=== PATIENT | female | born 1950 | race Caucasian/White ===

== ENCOUNTER 2016-11-19 14:35 | Emergency (ER) | payer BC ==
[2016-11-19] MEDS ORDERED: IPRATROPIUM/ALBUTEROL (0.5MG/3MG) NEB INH ONE (15:21)
--- NOTE | 2016-11-19 15:25 | Emergency Department Record ---
History of Present Illness - General Chief Complaint: Difficulty Breathing Stated Complaint: TOMER- PT HAS COPD Time Seen by Provider: 11/19/16 15:21 Source: Patient Mode of Arrival: Ambulatory Limitations: No limitations - History of Present Illness Initial Comments: 66 yo female presents with cough and wheezing since her vacuumed the house. She has a history of COPD. She is wheezy and short of breath with a persistent cough. The cough is non productive. No fevers. No hemoptysis. PCP is Ludwin Wilburn MD Complaint: Cough, Shortness of breath Onset/Timin -: Hour(s) Severity: Moderate Quality: Other Consistency: Other Improves With: Bronchodilators Worsens With: Exertion Known History Of: COPD Context: Allergen exposure Associated Symptoms: Denies other symptoms Treatments Prior to Arrival: Bronchodilator - Related Data Home Medications Medication Instructions Recorded Confirmed Last Taken Albuterol Sulfate [Ventolin Hfa] 1 puff INH QID 07/25/15 11/19/16 11/19/16 Lisinopril/Hydrochlorothiazide 20 mg PO DAILY 07/25/15 11/19/16 11/19/16 [Lisinopril-Hctz 20-12.5 mg Tab] Loratadine [Claritin] 10 mg PO DAILY 07/25/15 11/19/16 11/18/16 Omeprazole [Prilosec] 20 mg PO BID 07/25/15 11/19/16 11/19/16 Tiotropium Br/Olodaterol HCl 2 puff IH DAILY 09/22/15 11/19/16 11/19/16 [Stiolto Respimat Inhal [place]] Cyclobenzaprine HCl 10 mg PO ASDIR tab 10/30/16 11/19/16 11/19/16 Pravastatin Sodium 20 mg PO DAILY #90 10/30/16 11/19/16 11/19/16 Previous Rx's Medication Instructions Recorded Prednisone [Prednisone 20Mg] 20 mg PO BID #10 tab 11/19/16 Allergies Allergy/AdvReac Type Severity Reaction Status Date / Time No Known Drug Allergies Allergy Verified 11/19/16 15:08 Travel Screening - Travel/Exposure Within Last 30 Days Have you traveled within the last 30 days?: No - Travel/Exposure Within Last Year Have you traveled outside the [place] in the last year?: No - Additonal Travel Details Have you been exposed to anyone with a communicable illness?: No - Travel Symptoms Symptom Screening: None Review of Systems Constitutional: Denies: Chills, Fever, Malaise, Weakness Eyes: Denies: Eye discharge ENT: Reports: Congestion. Denies: Ear pain, Epistaxis, Throat pain Respiratory: Reports: Cough, Dyspnea, Wheezes Cardiovascular: Denies: Chest pain, Palpitations, Syncope Endocrine: Denies: Fatigue Gastrointestinal: Denies: Abdominal pain, Diarrhea, Nausea, Vomiting Genitourinary: Denies: Dysuria Musculoskeletal: Denies: Arthralgia, Back pain, Joint swelling, Myalgia Skin: Denies: Bruising, Change in color Neurological: Denies: Headache Psychiatric: Denies: Anxiety Hematological/Lymphatic: Denies: Blood Clots, Easy bleeding, Easy bruising, Swollen glands Past Medical History - SOCIAL HISTORY Smoking Status: Former smoker Alcohol Use: None Drug Use: None - RESPIRATORY Hx Respiratory Disorders: Yes Hx Asthma: Yes Hx COPD: Yes Hx Pneumonia: Yes - CARDIOVASCULAR Hx Cardio Disorders: Yes Hx Cardiac Cath: Yes (15 yrs) Hx Hypertension: Yes - NEURO Hx Neuro Disorders: Yes Hx CVA: Yes (unsure) - GI Hx GI Disorders: Yes Hx Reflux: Yes Comment:: ischemic colitis - Hx Genitourinary Disorders: No - ENDOCRINE Hx Endocrine Disorders: Yes Hx Thyroid Disease: Yes - MUSCULOSKELETAL Hx Musculoskeletal Disorders: Yes Hx Arthritis: Yes - PSYCH Hx Psych Problems: No - HEMATOLOGY/ONCOLOGY Hx Hematology/Oncology Disorders: No Family Medical History Any Significant Family History?: Yes Hx Alcohol Use: Father Hx Anxiety: Mother, Brother/Sister Hx Cancer: Father, Grandparents Hx Depression: Brother/Sister Hx Diabetes: Mother, Grandparents Hx Heart Disease: Mother Hx HTN: Father Hx Resp Disorders: Mother Physical Exam - General General Appearance: Alert, Oriented x3, Cooperative, No acute distress Limitations: No limitations - Head Head exam: Normal inspection - Eye Eye exam: Normal appearance, PERRL. negative: Conjunctival injection, Periorbital swelling - ENT ENT exam: Normal exam Ear exam: Normal external inspection Nasal Exam: Normal inspection Mouth exam: Normal external inspection Teeth exam: Normal inspection Throat exam: Normal inspection - Neck Neck exam: Normal inspection, Full ROM. negative: Tenderness - Respiratory Respiratory exam: Decreased breath sounds, Prolonged expiratory, Wheezes. negative: Accessory muscle use, Respiratory distress - Cardiovascular Cardiovascular Exam: Regular rate, Normal rhythm, Normal heart sounds - GI/Abdominal GI/Abdominal exam: Soft - Rectal Rectal exam: Deferred - exam: Deferred - Extremities Extremities exam: Normal inspection, Full ROM, Normal capillary refill. negative: Pedal edema, Tenderness - Back Back exam: Reports: Normal inspection, Full ROM. Denies: Muscle spasm, Rash noted, Tenderness - Neurological Neurological exam: Alert, Normal gait, Oriented X3 - Psychiatric Psychiatric exam: Normal affect, Normal mood - Skin Skin exam: Dry, Intact, Normal color, Warm Course Vital Signs 11/19/16 15:13 Temperature 97.5 F L Pulse Rate 103 H Respiratory 20 Rate Blood Pressure 183/89 Pulse Ox 99 - Reevaluation(s) Reevaluation #1: RT in room for a nebulized treatment. 11/19/16 15:24 Reevaluation #2: The patient is feeling much better at this time. On recheck she is moving air very well with good air exchange. She is comfortable with plan for DC home on Prednisone No signs of current infectious cause. 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
[2016-11-19] MEDS ORDERED: METHYLPREDNISOLONE PF 125MG/VIAL IVP SCH (15:30)
== END 2016-11-19 17:19 | disposition home or self-care (01) ==
LOC: ER 14:35
DX: J44.9 Chronic obstructive pulmonary disease, unspecified (principal); I10 Essential (primary) hypertension; Z87.891 Personal history of nicotine dependence
CPT/HCPCS: 94640; 96374; 99284; J2930

== ENCOUNTER 2017-07-01 21:14 | Observation (INO) | payer BC ==
[2017-07-01] MEDS ORDERED: METHYLPREDNISOLONE PF 125MG/VIAL IVP ONE (21:29)
[2017-07-01] MEDS ORDERED: ALBUTEROL SULFATE (0.083%) 2.5 MG/3 ML NEB INH ONE ×2 (21:29→22:40)
[2017-07-01] MEDS ORDERED: IPRATROPIUM/ALBUTEROL (0.5MG/3MG) NEB INH ONE (21:29)
[2017-07-01] MEDS ORDERED: MAGNESIUM SULFATE 16 MEQ in 0.9 % SODIUM CHLORIDE 100ML 100 ML IV ONE (21:31)
--- NOTE | 2017-07-01 21:36 | Emergency Department Record ---
History of Present Illness - General Chief Complaint: Shortness of breath Stated Complaint: TOMER Time Seen by Provider: 07/01/17 21:26 Source: Patient Mode of Arrival: Ambulatory Limitations: No limitations - History of Present Illness Initial Comments: The patient is here due to SOB and a cough which has gotten progressively worse over the last 2 days. She denies any sputum production or chest pain but states she has felt warm. She has a long hx of COPD but has not been admitted to the hospital in 2 years. The patient denies any recent illnesses or injuries. MD Complaint: Cough, Shortness of breath Onset/Timin -: Days(s) Consistency: Constant, Intermittent Improves With: Bronchodilators, Medication Worsens With: Nothing Known History Of: COPD Associated Symptoms: Denies other symptoms Treatments Prior to Arrival: Bronchodilator Treatment Prior to Arrival Comment:: nebulizer - Related Data Home Oxygen Therapy: Yes (at night) Home Oxygen Amount: 2 Liters Home Medications Medication Instructions Recorded Confirmed Last Taken Ipratropium/Albuterol [Duoneb] 1 neb INH ASDIR 07/01/17 07/01/17 07/01/17 Allergies Allergy/AdvReac Type Severity Reaction Status Date / Time No Known Drug Allergies Allergy Verified 07/01/17 21:17 Travel Screening - Travel/Exposure Within Last 30 Days Have you traveled within the last 30 days?: No - Travel/Exposure Within Last Year Have you traveled outside the [place] in the last year?: No - Additonal Travel Details Have you been exposed to anyone with a communicable illness?: No - Travel Symptoms Symptom Screening: None Review of Systems Constitutional: Denies: Chills, Fever Eyes: Denies: Eye discharge ENT: Reports: Congestion. Denies: Dental pain Respiratory: Reports: Cough, Dyspnea, Wheezes. Denies: Hemoptysis Cardiovascular: Denies: Arrhythmia, Chest pain Endocrine: Reports: Fatigue Gastrointestinal: Denies: Abdominal pain Genitourinary: Denies: Other Musculoskeletal: Denies: Back pain Past Medical History - SOCIAL HISTORY Smoking Status: Former smoker Alcohol Use: Rare Drug Use: None - RESPIRATORY Hx Respiratory Disorders: Yes Hx Asthma: Yes Hx COPD: Yes Hx Pneumonia: Yes - CARDIOVASCULAR Hx Cardio Disorders: Yes Hx Cardiac Cath: Yes (15 yrs) Hx Hypertension: Yes - NEURO Hx Neuro Disorders: Yes Hx CVA: Yes (unsure) - GI Hx GI Disorders: Yes Hx Reflux: Yes Comment:: ischemic colitis - Hx Genitourinary Disorders: No - ENDOCRINE Hx Endocrine Disorders: Yes Hx Thyroid Disease: Yes - MUSCULOSKELETAL Hx Musculoskeletal Disorders: Yes Hx Arthritis: Yes - PSYCH Hx Psych Problems: No - HEMATOLOGY/ONCOLOGY Hx Hematology/Oncology Disorders: No Family Medical History Any Significant Family History?: No Hx Alcohol Use: Father Hx Anxiety: Mother, Brother/Sister Hx Cancer: Father, Grandparents Hx Depression: Brother/Sister Hx Diabetes: Mother, Grandparents Hx Heart Disease: Mother Hx HTN: Father Hx Resp Disorders: Mother Physical Exam - General General Appearance: Alert, Oriented x3, Cooperative, Mild distress (due to dyspnea and coughing.) - Head Head exam: Atraumatic, Normocephalic - Eye Eye exam: Normal appearance, PERRL - ENT Throat exam: Normal inspection. negative: Tonsillar erythema, Tonsillar exudate - Neck Neck exam: Normal inspection, Full ROM. negative: Tenderness - Respiratory Respiratory exam: Decreased breath sounds, Respiratory distress (very mild.), Wheezes. negative: Normal lung sounds bilaterally, Accessory muscle use - Cardiovascular Cardiovascular Exam: Regular rate, Normal rhythm, Normal heart sounds, Tachycardia - GI/Abdominal GI/Abdominal exam: Soft, Normal bowel sounds. negative: Tenderness - Extremities Extremities exam: Normal inspection, Full ROM, Normal capillary refill. negative: Pedal edema, Tenderness - Neurological Neurological exam: Alert. negative: Motor sensory deficit Course Vital Signs 07/01/17 21:18 Temperature 98.4 F Pulse Rate 120 H Respiratory 32 H Rate Blood Pressure 194/116 Pulse Ox 91 L - Reevaluation(s) Reevaluation #1: The patient is doing a lot better at this time. She is able to speak in full sentences with only minor TOMER. On exam there are still wheezes in the lower lobes but much better aeration. We will treat the patient with a 3rd albuterol tx and recheck. 07/01/17 22:41 Reevaluation #2: The patient is again doing better. Her TOMER is much improved but she is still wheezing in the lower lobes. I did recommend hospital admission and the patient agrees to the plan. We will admit her to Dr. Childers overnight and she will be re- evaluated in the morning. 07/01/17 22:59 Medical Decision Making - Data Complexity MDM Data: Labs Ordered and/or Reviewed, X-Ray Ordered and/or Reviewed, EKG Ordered and/or Reviewed - Lab Data Result diagrams: 07/01/17 21:21 07/01/17 21:21 - EKG Data -: EKG Interpreted by Me EKG: No Acute Changes, Normal EKG (Except for Sinus Tach.) - Radiology Data Radiology results: Report reviewed (CXR: COPD, O/W neg.) Disposition Disposition: Admit Clinical Impression: COPD (chronic obstructive pulmonary disease) with acute bronchitis Disposition: Still a Patient at [facility] Decision to Admit: Admit from ER Decision to Admit Date: 07/01/17 Decision to Admit Time: 23:01 Accepting Physician: Liseth Time Discussed w/Accepting Physician: 23:01 Condition: (2) Stable Time of Disposition: 23:01 Quality - Quality Measures Quality Measures: N/A - Blood Pressure Screening View Details: Yes Does Patient Have Any of the Following: Active Dx of HTN Blood Pressure Classification: Hypertensive Reading Systolic Measurement: 154 Diastolic Measurement: 74 Screening for High Blood Pressure: Patient Exclusion, Hx of HTN [[id number]]
[2017-07-01 21:39] LABS: BASO % 0.5 % (0-6); EOS % 6.7 % (0-6); HEMATOCRIT 39.4 % (35.0-47.0); HEMOGLOBIN 13.4 gm/dl (11.6-16.0); LYMPH % 24.2 % (16-45); MEAN CELL VOLUME 89.1 fl (81-97); MEAN CORPUSCULAR HEMOGLOBIN 30.3 pg (27-33); MEAN PLATELET VOLUME 9.9 fl (7.4-10.4); MONO % 9.6 % (0-9); PLATELET COUNT 345 K/uL (130-400); RED BLOOD COUNT 4.42 M/uL (3.80-5.40); RED CELL DISTRIBUTION WIDTH 13.5 % (11.5-14.5); WHITE BLOOD COUNT W/O DIFF 11.8 K/uL (4.2-12.2)
[2017-07-01 21:56] LABS: BLOOD UREA NITROGEN 14 mg/dL (8-23); CREATININE 1.3 mg/dL (0.5-0.9); EST GLOMERULAR FILTRATION RATE 43 mL/min; GLUCOSE,RANDOM 114 mg/dL (74-109)
[2017-07-01 22:08] LABS: NTpro B-NATRIURETIC PEPTIDE 26.85 pg/mL (<125)
[2017-07-01 22:09] LABS: TROPONIN I < 0.30 ng/mL (0.00-0.300)
[2017-07-01] MEDS ORDERED: LEVOFLOXACIN 500 MG TABLET PO ONE (22:40)
[2017-07-01] MEDS ORDERED: 0.9 % SODIUM CHLORIDE 1,000 ML BAG IV ONE (23:07)
[2017-07-01] MEDS ORDERED: ALBUTEROL SULFATE (0.083%) 2.5 MG/3 ML NEB INH PRN (23:25)
[2017-07-01] MEDS ORDERED: 0.9 % SODIUM CHLORIDE 1000ML 1,000 ML IV PRN (23:25)
[2017-07-01] MEDS ORDERED: ACETAMINOPHEN 500 MG TABLET PO PRN (23:25)
[2017-07-02] MEDS: IPRATROPIUM/ALBUTEROL (0.5MG/3MG) NEB INH SCH ×3 (02:22→11:35)
[2017-07-02] MEDS ORDERED: LEVOFLOXACIN 500 MG TABLET PO SCH (06:00)
[2017-07-02 06:46] LABS: BASO % 0.1 % (0-6); EOS % 0.2 % (0-6); HEMATOCRIT 39.8 % (35.0-47.0); HEMOGLOBIN 13.3 gm/dl (11.6-16.0); LYMPH % 9.2 % (16-45); MEAN CELL VOLUME 90.5 fl (81-97); MEAN CORPUSCULAR HEMOGLOBIN 30.2 pg (27-33); MEAN CORPUSCULAR HGB CONC 33.4 g/dl (32-36); MONO % 0.8 % (0-9); PLATELET COUNT 322 K/uL (130-400); RED CELL DISTRIBUTION WIDTH 13.3 % (11.5-14.5); WHITE BLOOD COUNT W/O DIFF 10.4 K/uL (4.2-12.2)
[2017-07-02 06:58] LABS: ALB/GLOB RATIO 1.7 (1.1-1.8); ALBUMIN 4.5 g/dL (4.0-5.0); ALKALINE PHOSPHATASE 64 U/L (35-104); ALT/SGPT 26 U/L (<33); AST/SGOT 20 U/L (10.0-35.0); BLOOD UREA NITROGEN 12 mg/dL (8-23); CREATININE 0.9 mg/dL (0.5-0.9); EST GLOMERULAR FILTRATION RATE > 60 mL/min; GLUCOSE,RANDOM 196 mg/dL (74-109); TOTAL PROTEIN 7.2 g/dL (6.6-8.7)
[2017-07-02] MEDS ORDERED: PANTOPRAZOLE SODIUM 40 MG TABLET PO SCH (07:00)
--- NOTE | 2017-07-02 07:48 | RADIOLOGY REPORT ---
EXAM: CHEST, TWO VIEWS HISTORY: DIFFICULTY IN BREATHING. TECHNIQUE: PA and lateral views of the chest were obtained. Comparison: Two view chest 10/30/16. FINDINGS: The heart size is normal. The lungs again appear somewhat hyperinflated suggesting underlying COPD. No acute infiltrate is identified. No pleural effusion or pneumothorax evident. Some hypertrophic spurring in the spine again evident. IMPRESSION: 1. HYPERINFLATION SUGGESTING COPD. NO ACUTE INFILTRATE EVIDENT. 2. HYPERTROPHIC SPURRING IN THE SPINE. JOB NUMBER: [id number] [facility]
--- NOTE | 2017-07-02 08:51 | Discharge Note ---
VTE H&P Assessment - Risk for VTE Risk for VTE: Yes Risk Level: Very Low Risk Assessment Date: 07/02/17 Risk Assessment Time: 08:49 VTE Orders Placed or Will Be Placed: No VTE Reason for No Prophylaxis: Not Indicated (going home) Discharge Medications - Discharge Medications Prescriptions: Levofloxacin [Levaquin] 500 mg PO DAILY #7 tablet Prednisone [Prednisone 10Mg] 10 mg PO ASDIR #30 tab Home Medications: Ambulatory Orders Albuterol Sulfate [Ventolin Hfa] 1 puff INH QID 07/25/15 [Last Taken 07/01/17] Lisinopril/Hydrochlorothiazide [Lisinopril-Hctz 20-12.5 mg Tab] 40 mg PO DAILY 07/25/15 [Last Taken 07/01/17] Loratadine [Claritin] 10 mg PO DAILY 07/25/15 [Last Taken 07/01/17] Omeprazole [Prilosec] 20 mg PO BID 07/25/15 [Last Taken 07/01/17] Cyclobenzaprine HCl 10 mg PO ASDIR tab 10/30/16 [Last Taken 11/19/16] Pravastatin Sodium 20 mg PO DAILY #90 10/30/16 [Last Taken 07/01/17] Ipratropium/Albuterol [Duoneb] 1 neb INH ASDIR 07/01/17 [Last Taken 07/01/17] Levofloxacin [Levaquin] 500 mg PO DAILY #7 tablet 07/02/17 [Last Taken Unknown] Prednisone [Prednisone 10Mg] 10 mg PO ASDIR #30 tab 07/02/17 [Last Taken Unknown ] Discharge Note - Date Date of Discharge Note: 07/02/17 Disposition: Home, Self-Care Condition: (2) Stable Instructions: Dyspnea (ED) Additional Instructions: follow up with family Dr. Lea as scheduled Jul 10 and sooner if worse Forms: Patient Portal Access Activity at Discharge: As Per Physical Therapy
[2017-07-02] MEDS ORDERED: HYDROCHLOROTHIAZIDE 12.5 MG CAPSULE PO SCH ×2 (10:00)
[2017-07-02] MEDS ORDERED: LISINOPRIL 20 MG TABLET PO SCH ×2 (10:00)
[2017-07-02] MEDS ORDERED: Non-Formulary MISC (Omeprazole [Prilosec] 20 MG) PO SCH (10:00)
[2017-07-02] MEDS ORDERED: PRAVASTATIN SODIUM 20 MG PO SCH (10:00)
[2017-07-02] MEDS ORDERED: LORATADINE 10 MG TABLET PO SCH (10:00)
[2017-07-02] MEDS ORDERED: METHYLPREDNISOLONE PF 125MG/VIAL IVP SCH (10:00)
[2017-07-02] MEDS ORDERED: SIMVASTATIN 10MG TABLET PO SCH (22:00)
--- NOTE | 2017-07-03 07:30 | History and Physical Report ---
This is an observation patient. DATE OF ADMISSION: 07/01/2017 CHIEF COMPLAINT: Dyspnea and coughing. HISTORY OF PRESENT ILLNESS: This 67-year-old female presented to the emergency department with difficulty breathing, wheezing, shortness of breath, and cough. Evaluated in the emergency department by Dr. Irene. The patient had the cough for 2 days, progressively getting worse. Denies sputum production. Long history of COPD and uses home oxygen mostly at night for sleeping. She also gets samples from her doctor's office of [facility] and she rotates between 250/50 and 500/50. Currently she believes she is on 250/50. She is admitted to the hospital with a diagnosis of COPD, bronchitis. Started on Levaquin. PAST MEDICAL HISTORY: COPD and using home oxygen, GERD, hypertension, heart catheterization 15 years ago negative, TIA, ischemic colitis, hypothyroidism, arthritis. PAST SURGICAL HISTORY: Right ovarian cyst removed in 1974. MEDICATIONS: 1. DuoNeb q.i.d. 2. Pravastatin 20 mg at h.s. 3. Omeprazole 20 mg b.i.d. 4. Claritin 10 mg daily. 5. Lisinopril/hydrochlorothiazide 20/12.5 once a day. 6. Flexeril 10 mg p.r.n. 7. Ventolin 1 puff q.4 h. p.r.n. ALLERGIES: No known drug allergies. FAMILY HISTORY: Father had alcohol use. Mother had anxiety. Brother and sister had anxiety. Father and grandparents with cancer, depression, 4 brothers and sisters. Mother had diabetes. Grandparents have diabetes. Heart disease in the mother. Hypertension in the father. Respiratory problems in the mother. SOCIAL HISTORY: She is a former smoker, stopped in 2014. Started smoking in 1967, a pack a day. Occasional alcohol use. No drug use. REVIEW OF SYSTEMS: HEENT: See Chief Complaint. There is some congestion and a cough and wheezing. Cardiovascular: No chest pain, palpitations, or arrhythmia. Respiratory: She is short of breath and wheezing when she came into the emergency department. Much improved since she got Solu-Medrol. Started on an antibiotic of Levaquin and fluids. Gastrointestinal: No nausea, vomiting, diarrhea, black stools, or bloody stools. Genitourinary: No dysuria, hematuria, frequency, or burning on urination. Musculoskeletal: Arthritis in her joints. Neurological: No CVA, paralysis, or paresthesias. Endocrine: No diabetes or thyroid disease. Gynecological History: No abnormal lumps in her breasts or abnormal vaginal bleeding. Integument: No rash, ulcers, change in moles, or yellow skin. PHYSICAL EXAMINATION: VITALS: Height 5 feet 7 inches, weight 186 pounds. Temperature 97.6, pulse 102, blood pressure 153/81, respiratory rate 18, pulse ox 97% on 2L O2. HEENT: Pupils are equal, round, and reactive to light and accommodation. Extraocular muscles are intact. Throat is clear. Nose is clear. Tympanic membranes are laurent. NECK: Supple. No jugular venous distention. No hepatojugular reflux. No carotid bruits. Thyroid is smooth. CARDIOVASCULAR: Regular rate and rhythm without murmurs, clicks, rubs, or gallops. RESPIRATORY: Clear to auscultation and percussion. She was wheezing last night. ABDOMEN: Soft, nontender. No hepatosplenomegaly, no masses, no tenderness. Bowel sounds are active. No bruits. EXTREMITIES: No pitting edema. No cyanosis, no clubbing. Full range of motion. Peripheral pulses are good. BREASTS: Exam deferred. GYNECOLOGICAL: Exam deferred. RECTAL: Exam deferred. NEUROLOGIC: Cranial nerves II-XII intact. No gross defects. Sensation normal, strength normal. Deep tendon reflexes equal bilaterally with Babinski negative. MENTAL STATUS: Alert and oriented x3. IMPRESSION: 1. Acute bronchitis. 2. Acute exacerbation of COPD. 3. GERD. PLAN: IV fluids. She got a dose of Levaquin and Solu-Medrol. At this point, we will discharge the patient to home. She is feeling much better. CC: Dr. Marcial MORRIS
--- NOTE | 2017-07-04 15:26 | Discharge Summary ---
DATE OF ADMISSION: 07/01/2017 DATE OF DISCHARGE: 07/02/2017 DISCHARGE DIAGNOSES: 1. Acute bronchitis. 2. COPD. 3. GERD. 4. Hypercholesterolemia. 5. Hypertension. ATTENDING PHYSICIAN: Azar Childers DO REASON FOR HOSPITALIZATION: Wheezing and cough for 2 days. This 67-year-old female developed a cough with congestion and short of breath over the last 2 days, came in to the ER, evaluated by Dr. Irene, and admitted to the hospital for IV Levaquin, IV Solu-Medrol, and breathing treatments. SIGNIFICANT FINDINGS FROM EXAMINATION: Chest x-ray was hyperinflation suggesting COPD. No acute infiltrate evident. EKG showing sinus tachycardia. No ST/T wave changes. LABORATORY: The WBC on discharge was 10,400. Hemoglobin 13.3. Segs were 88. Lymphs were 9. Potassium was 4.7. BUN was 12. Creatinine was 0.9. Glucose was 114 when she came in to the hospital. It went up because of the IV Solu-Medrol. It was 196 when she was discharged. THERAPY PROVIDED: IV Solu-Medrol. DuoNeb treatments. IV fluids. IV Levaquin. CONDITION ON DISCHARGE: Much improved. DISCHARGE INSTRUCTIONS: Levaquin 500 mg daily x 7. Prednisone started at 40 mg, taper to nothing in 3-day increments, 4 pills a day for 3 days, then 3 pills a day for 3 days, then 2 pills a day for 3 days, then 1 pill a day for 3 days with 10 mg pills. Follow up with Dr. Tish Wilburn in 7-10 days. Troponin I was negative. Brain natriuretic peptide was negative. CC: Tish Wilburn DO [id number]
== END 2017-07-02 11:40 | disposition home or self-care (01) ==
LOC: ER 21:14 → MEDSURG 23:18
PROVIDERS: ADMIT Emergency Medicine; ATTEND Emergency Medicine
DX: J44.0 Chronic obstructive pulmonary disease with (acute) lower respiratory infection (principal); J20.9 Acute bronchitis, unspecified; J44.1 Chronic obstructive pulmonary disease with (acute) exacerbation; K21.9 Gastro-esophageal reflux disease without esophagitis; E78.00 Pure hypercholesterolemia, unspecified; I10 Essential (primary) hypertension; Z86.73 Personal history of transient ischemic attack (TIA), and cerebral infarction without residual deficits; K55.9 Vascular disorder of intestine, unspecified
CPT/HCPCS: 99285 ×2; 96374; 85025; 84484; 80048; 80053; 85027; 83880; 71020; 94640 ×3; 94762; 93005; 93010; G0378 ×2; 99220; J2930; J7030; J7613

== ENCOUNTER 2017-07-27 08:42 | Emergency (ER) | payer BC ==
[2017-07-27] MEDS ORDERED: IPRATROPIUM/ALBUTEROL (0.5MG/3MG) NEB INH ONE (08:57)
[2017-07-27] MEDS ORDERED: METHYLPREDNISOLONE PF 125MG/VIAL IVP ONE (09:18)
--- NOTE | 2017-07-27 09:29 | Emergency Department Record ---
History of Present Illness - General Chief Complaint: Shortness of breath Stated Complaint: SHORTNESS OF BREATH Time Seen by Provider: 07/27/17 08:54 Source: Patient Mode of Arrival: Ambulatory Limitations: No limitations - History of Present Illness Initial Comments: pt has been increasingly sob with nonproductive cough. she usually wears oxygen at night but has been wearing it all day for the last day MD Complaint: Cough, Shortness of breath Onset/Timin -: Days(s) Improves With: Nothing Worsens With: Exertion Known History Of: COPD Context: Other Associated Symptoms: Cough Treatments Prior to Arrival: Bronchodilator Treatment Prior to Arrival Comment:: Duoneb - Related Data Home Oxygen Therapy: Yes Home Oxygen Amount: 2 Liters Home Medications Medication Instructions Recorded Confirmed Last Taken Guaifenesin [Mucinex] 600 mg PO ASDIR 07/27/17 07/27/17 07/27/17 L.acidoph,Paracasei, B.lactis 1 each PO ASDIR 07/27/17 07/27/17 07/27/17 [Probiotic] Previous Rx's Medication Instructions Recorded Levofloxacin [Levaquin] 500 mg PO DAILY #7 tablet 07/02/17 Prednisone [Prednisone 20Mg] 20 mg PO BIDPC #8 tab 07/27/17 Allergies Allergy/AdvReac Type Severity Reaction Status Date / Time No Known Drug Allergies Allergy Verified 07/27/17 08:47 Travel Screening - Travel/Exposure Within Last 30 Days Have you traveled within the last 30 days?: No - Travel/Exposure Within Last Year Have you traveled outside the [place] in the last year?: No - Additonal Travel Details Have you been exposed to anyone with a communicable illness?: No - Travel Symptoms Symptom Screening: None Review of Systems Reviewed: No additional complaints except as noted below Constitutional: Reports: As per HPI. Denies: Chills, Fever, Malaise, Night sweats, Weakness, Weight change Eyes: Reports: As per HPI. Denies: Eye discharge, Eye pain, Photophobia, Vision change ENT: Reports: As per HPI. Denies: Congestion, Dental pain, Ear pain, Epistaxis , Hearing loss, Throat pain Respiratory: Reports: As per HPI. Denies: Cough, Dyspnea, Hemoptysis, Stridor, Wheezes Cardiovascular: Reports: As per HPI. Denies: Arrhythmia, Chest pain, Dyspnea on exertion, Edema, Murmurs, Orthopnea, Palpitations, Paroxysmal nocturnal dyspnea, Rheumatic Fever, Syncope Endocrine: Reports: As per HPI. Denies: Fatigue, Heat or cold intolerance, Polydipsia, Polyuria Gastrointestinal: Reports: As per HPI. Denies: Abdominal pain, Constipation, Diarrhea, Hematemesis, Hematochezia, Melena, Nausea, Vomiting Genitourinary: Reports: As per HPI. Denies: Abnormal menses, Discharge, Dyspareunia, Dysuria, Frequency, Hematuria, Incontinence, Retention, Urgency Musculoskeletal: Reports: As per HPI. Denies: Arthralgia, Back pain, Gout, Joint swelling, Myalgia, Neck pain Skin: Reports: As per HPI. Denies: Bruising, Change in color, Change in hair/ nails, Lesions, Pruritus, Rash Neurological: Reports: As per HPI. Denies: Abnormal gait, Confusion, Headache, Numbness, Paresthesias, Seizure, Tingling, Tremors, Vertigo, Weakness Psychiatric: Reports: As per HPI. Denies: Anxiety, Auditory hallucinations, Depression, Homicidal thoughts, Suicidal thoughts, Visual hallucinations Hematological/Lymphatic: Reports: As per HPI. Denies: Anemia, Blood Clots, Easy bleeding, Easy bruising, Swollen glands Past Medical History - SOCIAL HISTORY Smoking Status: Former smoker Alcohol Use: None Drug Use: None - RESPIRATORY Hx Respiratory Disorders: Yes Hx Asthma: Yes Hx COPD: Yes Hx Pneumonia: Yes - CARDIOVASCULAR Hx Cardio Disorders: Yes Hx Cardiac Cath: Yes (15 yrs) Hx Hypertension: Yes - NEURO Hx Neuro Disorders: Yes Hx CVA: Yes (unsure) - GI Hx GI Disorders: Yes Hx Reflux: Yes Comment:: ischemic colitis - Hx Genitourinary Disorders: No - ENDOCRINE Hx Endocrine Disorders: Yes Hx Thyroid Disease: Yes - MUSCULOSKELETAL Hx Musculoskeletal Disorders: Yes Hx Arthritis: Yes - PSYCH Hx Psych Problems: No - HEMATOLOGY/ONCOLOGY Hx Hematology/Oncology Disorders: No Family Medical History Any Significant Family History?: Yes Hx Alcohol Use: Father Hx Anxiety: Mother, Brother/Sister Hx Cancer: Father, Grandparents Hx Depression: Brother/Sister Hx Diabetes: Mother, Grandparents Hx Heart Disease: Mother Hx HTN: Father Hx Resp Disorders: Mother Physical Exam - General General Appearance: Alert, Oriented x3, Cooperative, Mild distress - Head Head exam: Normal inspection - Eye Eye exam: Normal appearance, PERRL, EOMI Pupils: Normal accommodation - ENT ENT exam: Normal exam, Mucous membranes moist, Normal external ear exam, Normal orophraynx, TM's normal bilaterally Ear exam: Normal external inspection. negative: External canal tenderness Nasal Exam: Normal inspection. negative: Discharge, Sinus tenderness Mouth exam: Normal external inspection, Tongue normal Teeth exam: Normal inspection. negative: Dental caries Throat exam: Normal inspection. negative: Tonsillar erythema, Tonsillar exudate - Neck Neck exam: Normal inspection, Full ROM. negative: Tenderness - Respiratory Respiratory exam: Accessory muscle use, Decreased breath sounds, Respiratory distress, Wheezes - Cardiovascular Cardiovascular Exam: Regular rate, Normal rhythm, Normal heart sounds - GI/Abdominal GI/Abdominal exam: Soft, Normal bowel sounds. negative: Tenderness - Rectal Rectal exam: Deferred - exam: Deferred - Extremities Extremities exam: Normal inspection, Full ROM, Normal capillary refill. negative: Tenderness - Back Back exam: Reports: Normal inspection, Full ROM. Denies: Muscle spasm, Rash noted, Tenderness - Neurological Neurological exam: Alert, CN II-XII intact, Normal gait, Oriented X3 - Psychiatric Psychiatric exam: Normal affect, Normal mood - Skin Skin exam: Dry, Intact, Normal color, Warm Course Vital Signs 07/27/17 07/27/17 08:50 09:02 Temperature 98.3 F Pulse Rate 117 H 101 H Respiratory 22 21 Rate Blood Pressure 202/94 Pulse Ox 92 L 97 - Reevaluation(s) Reevaluation #1: 07/27/17 12:06 pt feels much better Medical Decision Making - Lab Data Result diagrams: 07/27/17 08:56 07/27/17 08:56 Disposition Disposition: Discharge Clinical Impression: Acute exacerbation of COPD with asthma Disposition: Home, Self-Care Condition: (1) Good Instructions: Asthma (ED), COPD (Chronic Obstructive Pulmonary Disease) (ED) Additional Instructions: follow up with family doctor. return sooner if worse. Prescriptions: Prednisone [Prednisone 20Mg] 20 mg PO BIDPC #8 tab Forms: Patient Portal Access Quality - Quality Measures Quality Measures: N/A - Blood Pressure Screening Does Patient Have Any of the Following: Active Dx of HTN Blood Pressure Classification: Hypertensive Reading Systolic Measurement: 202 Diastolic Measurement: 94 Screening for High Blood Pressure: Patient Exclusion, Hx of HTN [G9744]
[2017-07-27] MEDS ORDERED: ALBUTEROL SULFATE (0.083%) 2.5 MG/3 ML NEB INH ONE (10:34)
[2017-07-27 10:53] LABS: HEMATOCRIT 39.8 % (35.0-47.0); HEMOGLOBIN 13.6 gm/dl (11.6-16.0); MEAN CELL VOLUME 88.2 fl (81-97); MEAN CORPUSCULAR HEMOGLOBIN 30.2 pg (27-33); MEAN CORPUSCULAR HGB CONC 34.2 g/dl (32-36); MEAN PLATELET VOLUME 10.4 fl (7.4-10.4); PLATELET COUNT 359 K/uL (130-400); RED BLOOD COUNT 4.51 M/uL (3.80-5.40); WHITE BLOOD COUNT W/O DIFF 7.2 K/uL (4.2-12.2)
[2017-07-27] MEDS ORDERED: ACETAMINOPHEN 500 MG TABLET PO ONE (10:58)
[2017-07-27 11:12] LABS: BLOOD UREA NITROGEN 10 mg/dL (8-23); CREATININE 0.7 mg/dL (0.5-0.9); EST GLOMERULAR FILTRATION RATE > 60 mL/min; GLUCOSE,RANDOM 127 mg/dL (74-109)
--- NOTE | 2017-07-28 09:51 | RADIOLOGY REPORT ---
DATE: 07/27/2017 at 9:46 a.m. EXAM: TWO-VIEW, CHEST. HISTORY: Difficulty breathing. Chronic obstructive pulmonary disease for two years. TECHNIQUE: PA and lateral views. COMPARISON: Two-view, chest, dated 07/01/2017. FINDINGS: Heart size is normal. The lungs again appear somewhat hyperinflated suggesting underlying chronic obstructive pulmonary disease. No definite acute infiltrate is seen, and no pleural effusion or pneumothorax evident. Hypertrophic spurring in the spine. IMPRESSION: 1. HYPERINFLATION SUGGESTING CHRONIC OBSTRUCTIVE PULMONARY DISEASE. 2. HYPERTROPHIC SPURRING IN THE SPINE. JOB NUMBER: [id number] [facility]
== END 2017-07-27 12:22 | disposition home or self-care (01) ==
LOC: ER 08:42
DX: J44.1 Chronic obstructive pulmonary disease with (acute) exacerbation (principal); I10 Essential (primary) hypertension; Z99.81 Dependence on supplemental oxygen; Z87.891 Personal history of nicotine dependence
CPT/HCPCS: 71020; 80048; 85027; 94640; 96374; 99284; J2930; J7613

== ENCOUNTER 2017-08-12 11:33 | Emergency (ER) | payer BC ==
[2017-08-12] MEDS ORDERED: METHYLPREDNISOLONE PF 125MG/VIAL IVP ONE (12:42)
[2017-08-12] MEDS ORDERED: IPRATROPIUM/ALBUTEROL (0.5MG/3MG) NEB INH ONE (12:42)
--- NOTE | 2017-08-12 12:44 | Emergency Department Record ---
History of Present Illness - General Chief Complaint: Difficulty Breathing Stated Complaint: TOMER Time Seen by Provider: 08/12/17 12:39 Source: Patient Mode of Arrival: Ambulatory - History of Present Illness Initial Comments: The patient stats that she began having sneezing yesterday, and gradual onset of TOMER after her mulched the grass around their home. 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 She has a history of COPD and has had pneumonia twice. She denies history of PE or DVT. She is coughing up clear, denies fevers, but has felt chilled. She was here a week ago for similar symptoms and was given 4 days of steroid taper. Onset/Timin -: Days(s) Severity: Moderate Consistency: Getting worse Improves With: Bronchodilators Worsens With: Coughing, Exertion Known History Of: COPD Context: Allergen exposure Treatments Prior to Arrival: Bronchodilator - Related Data Home Oxygen Therapy: Yes Home Oxygen Amount: 2 Liters Previous Rx's Medication Instructions Recorded Prednisone [Prednisone 20Mg] 20 mg PO DAILY #20 tab 08/12/17 Allergies Allergy/AdvReac Type Severity Reaction Status Date / Time No Known Drug Allergies Allergy Verified 08/12/17 12:28 Travel Screening - Travel/Exposure Within Last 30 Days Have you traveled within the last 30 days?: No - Travel/Exposure Within Last Year Have you traveled outside the [place] in the last year?: No - Additonal Travel Details Have you been exposed to anyone with a communicable illness?: No - Travel Symptoms Symptom Screening: None Review of Systems Reviewed: No additional complaints except as noted below Constitutional: Reports: As per HPI. Denies: Chills, Fever, Malaise, Night sweats, Weakness, Weight change Eyes: Reports: As per HPI. Denies: Eye discharge, Eye pain, Photophobia, Vision change ENT: Reports: As per HPI. Denies: Congestion, Dental pain, Ear pain, Epistaxis , Hearing loss, Throat pain Respiratory: Reports: As per HPI. Denies: Cough, Dyspnea, Hemoptysis, Stridor, Wheezes Cardiovascular: Reports: As per HPI. Denies: Arrhythmia, Chest pain, Dyspnea on exertion, Edema, Murmurs, Orthopnea, Palpitations, Paroxysmal nocturnal dyspnea, Rheumatic Fever, Syncope Endocrine: Reports: As per HPI. Denies: Fatigue, Heat or cold intolerance, Polydipsia, Polyuria Gastrointestinal: Reports: As per HPI. Denies: Abdominal pain, Constipation, Diarrhea, Hematemesis, Hematochezia, Melena, Nausea, Vomiting Genitourinary: Reports: As per HPI. Denies: Abnormal menses, Discharge, Dyspareunia, Dysuria, Frequency, Hematuria, Incontinence, Retention, Urgency Musculoskeletal: Reports: As per HPI. Denies: Arthralgia, Back pain, Gout, Joint swelling, Myalgia, Neck pain Skin: Reports: As per HPI. Denies: Bruising, Change in color, Change in hair/ nails, Lesions, Pruritus, Rash Neurological: Reports: As per HPI. Denies: Abnormal gait, Confusion, Headache, Numbness, Paresthesias, Seizure, Tingling, Tremors, Vertigo, Weakness Psychiatric: Reports: As per HPI. Denies: Anxiety, Auditory hallucinations, Depression, Homicidal thoughts, Suicidal thoughts, Visual hallucinations Hematological/Lymphatic: Reports: As per HPI. Denies: Anemia, Blood Clots, Easy bleeding, Easy bruising, Swollen glands Past Medical History - SOCIAL HISTORY Smoking Status: Former smoker Alcohol Use: None Drug Use: None - RESPIRATORY Hx Respiratory Disorders: Yes Hx Asthma: Yes Hx COPD: Yes Hx Pneumonia: Yes - CARDIOVASCULAR Hx Cardio Disorders: Yes Hx Cardiac Cath: Yes (15 yrs) Hx Hypertension: Yes - NEURO Hx Neuro Disorders: Yes Hx CVA: Yes (unsure) - GI Hx GI Disorders: Yes Hx Reflux: Yes Comment:: ischemic colitis - Hx Genitourinary Disorders: No - ENDOCRINE Hx Endocrine Disorders: Yes Hx Thyroid Disease: Yes - MUSCULOSKELETAL Hx Musculoskeletal Disorders: Yes Hx Arthritis: Yes - PSYCH Hx Psych Problems: No - HEMATOLOGY/ONCOLOGY Hx Hematology/Oncology Disorders: No Family Medical History Any Significant Family History?: Yes Hx Alcohol Use: Father Hx Anxiety: Mother, Brother/Sister Hx Cancer: Father, Grandparents Hx Depression: Brother/Sister Hx Diabetes: Mother, Grandparents Hx Heart Disease: Mother Hx HTN: Father Hx Resp Disorders: Mother Physical Exam - General General Appearance: Alert, Oriented x3, Cooperative, Moderate distress ( breathless speech, shakiness of extremities.) - Head Head exam: Normal inspection - Eye Eye exam: Normal appearance, PERRL Pupils: Normal accommodation - ENT ENT exam: Normal exam, Mucous membranes moist, Normal external ear exam, Normal orophraynx, TM's normal bilaterally Ear exam: Normal external inspection. negative: External canal tenderness Nasal Exam: Normal inspection. negative: Discharge, Sinus tenderness Mouth exam: Normal external inspection, Tongue normal Teeth exam: Normal inspection. negative: Dental caries Throat exam: Normal inspection. negative: Tonsillar erythema, Tonsillar exudate - Neck Neck exam: Normal inspection, Full ROM. negative: Lymphadenopathy, Meningismus , Tenderness - Respiratory Respiratory exam: Accessory muscle use, Decreased breath sounds, Prolonged expiratory, Wheezes. negative: Respiratory distress - Cardiovascular Cardiovascular Exam: Normal rhythm, Normal heart sounds, Tachycardia - GI/Abdominal GI/Abdominal exam: Soft, Normal bowel sounds. negative: Tenderness - Rectal Rectal exam: Deferred - exam: Deferred - Extremities Extremities exam: Normal inspection, Full ROM, Normal capillary refill. negative: Calf tenderness, Pedal edema, Tenderness - Back Back exam: Reports: Normal inspection, Full ROM. Denies: Muscle spasm, Rash noted, Tenderness - Neurological Neurological exam: Alert, Normal gait, Oriented X3, Reflexes normal - Psychiatric Psychiatric exam: Normal affect, Normal mood - Skin Skin exam: Dry, Intact, Normal color, Warm Course Vital Signs 08/12/17 12:30 Temperature 98.7 F Pulse Rate 124 H Respiratory 24 Rate Blood Pressure 156/84 Pulse Ox 97 - Reevaluation(s) Reevaluation #1: Patient is breathing much easier. She does NOT wish to be admitted. She has her nebulizer and medication for it at home. 08/12/17 15:12 Reevaluation #2: Lungs clear after nebs tiimes 2 Patient is requesting dc home. 08/12/17 15:19 Medical Decision Making - Management Options MDM Management: No Additional Work-up Planned - Data Complexity MDM Data: Labs Ordered and/or Reviewed, EKG Ordered and/or Reviewed - Lab Data Result diagrams: 08/12/17 12:38 08/12/17 12:38 - EKG Data -: EKG Interpreted by Me EKG: No Acute Changes, Unchanged From Previous Disposition Disposition: Discharge Clinical Impression: Acute exacerbation of COPD with asthma Disposition: Home, Self-Care Condition: (1) Good Instructions: Dyspnea (ED), COPD (Chronic Obstructive Pulmonary Disease) (ED) Additional Instructions: Prednisone taper over 10 days as instructed. Follow up [facility] PCP for recheck this week if needed. Prescriptions: Prednisone [Prednisone 20Mg] 20 mg PO DAILY #20 tab Forms: Patient Portal Access Quality - Quality Measures Quality Measures: N/A - Blood Pressure Screening Does Patient Have Any of the Following: No, Active Dx of HTN Blood Pressure Classification: Pre-Hypertensive BP Reading Systolic Measurement: 156 Diastolic Measurement: 84 Screening for High Blood Pressure: Patient Exclusion, Hx of HTN [G9744]
[2017-08-12 13:10] LABS: BASO % 0.2 % (0-6); EOS % 3.8 % (0-6); GRAN % 76.5 % (47-80); HEMATOCRIT 39.7 % (35.0-47.0); HEMOGLOBIN 13.3 gm/dl (11.6-16.0); LYMPH % 14.8 % (16-45); MEAN CELL VOLUME 88.8 fl (81-97); MEAN CORPUSCULAR HEMOGLOBIN 29.8 pg (27-33); MEAN CORPUSCULAR HGB CONC 33.5 g/dl (32-36); MEAN PLATELET VOLUME 10.1 fl (7.4-10.4); MONO % 4.7 % (0-9); PLATELET COUNT 356 K/uL (130-400); RED BLOOD COUNT 4.47 M/uL (3.80-5.40); URINE APPEARANCE CLEAR; URINE BILIRUBIN NEGATIVE (NEGATIVE); URINE BLOOD TRACE-I (NEGATIVE); URINE COLOR YELLOW; URINE GLUCOSE (UA) NEGATIVE (NEGATIVE); URINE KETONE NEGATIVE (NEGATIVE); URINE LEUKOCYTE ESTERASE NEGATIVE (NEGATIVE); URINE NITRITE NEGATIVE (NEGATIVE); URINE PROTEIN NEGATIVE (NEGATIVE); URINE UROBILINOGEN 0.2 E.U./dL (0.20 - 1.00); WHITE BLOOD COUNT W/O DIFF 10.7 K/uL (4.2-12.2)
[2017-08-12 13:17] LABS: BLOOD UREA NITROGEN 11 mg/dL (8-23); CREATININE 0.9 mg/dL (0.5-0.9); EST GLOMERULAR FILTRATION RATE > 60 mL/min; GLUCOSE,RANDOM 158 mg/dL (74-109)
[2017-08-12 13:23] LABS: URINE BACTERIA FEW; URINE EPITHELIAL CELLS 0 - 2 (FEW); URINE RBC 0 - 2 (NONE SEEN); URINE WBC 0 - 2 (0-2/hpf)
[2017-08-12 13:27] LABS: NTpro B-NATRIURETIC PEPTIDE 46.78 pg/mL (<125)
[2017-08-12] MEDS ORDERED: ALBUTEROL SULFATE (0.083%) 2.5 MG/3 ML NEB INH ONE (14:29)
== END 2017-08-12 15:28 | disposition home or self-care (01) ==
LOC: ER 11:33
DX: J44.1 Chronic obstructive pulmonary disease with (acute) exacerbation (principal); Z87.891 Personal history of nicotine dependence
CPT/HCPCS: 80048; 81001; 83880; 85025; 85379; 93005; 93010; 94640; 96374; 99284; J2930; J7613

== ENCOUNTER 2018-02-17 19:51 | Emergency (ER) | payer BC ==
[2018-02-17] MEDS ORDERED: METHYLPREDNISOLONE PF 125MG/VIAL IVP ONE (20:06)
[2018-02-17] MEDS ORDERED: IPRATROPIUM/ALBUTEROL (0.5MG/3MG) NEB INH ONE (20:06)
--- NOTE | 2018-02-17 20:10 | Emergency Department Record ---
History of Present Illness - General Chief Complaint: Shortness of breath Stated Complaint: COPD/TOMER Time Seen by Provider: 02/17/18 20:05 Source: Patient Mode of Arrival: Wheelchair Limitations: No limitations - History of Present Illness Initial Comments: 67 yo female presents to ED for evaluation of difficulty in breathing that has progressively worsened over the past several days, reports history of COPD. Patient reports that her symptoms have worsened tonight. Patient reports that she has been using her nebulizer that has improved her symptoms until today. Patient denies fever or productive cough symptoms, and does not use oxygen at home. MD Complaint: Shortness of breath Onset/Timin -: Days(s) Severity: Moderate Consistency: Constant Improves With: Bronchodilators Worsens With: Nothing Known History Of: COPD Associated Symptoms: Denies other symptoms Treatments Prior to Arrival: Bronchodilator - Related Data Home Oxygen Therapy: No Home Medications Medication Instructions Recorded Confirmed Last Taken Budesonide/Formoterol Fumarate 1 inh IH BID 02/17/18 02/17/18 Unknown [Symbicort 160-4.5 Mcg Inhaler] Metformin HCl [Glucophage] 500 mg PO BID 02/17/18 02/17/18 Unknown Previous Rx's Medication Instructions Recorded Prednisone [Prednisone 20Mg] 20 mg PO TID #12 tab 02/17/18 Allergies Allergy/AdvReac Type Severity Reaction Status Date / Time No Known Drug Allergies Allergy Verified 08/12/17 12:28 Review of Systems Constitutional: Denies: Chills, Fever, Malaise, Night sweats Eyes: Denies: Eye discharge, Eye pain ENT: Denies: Congestion, Ear pain, Epistaxis Respiratory: Reports: Cough, Dyspnea, Wheezes Cardiovascular: Reports: Dyspnea on exertion. Denies: Chest pain Endocrine: Denies: Fatigue, Heat or cold intolerance Gastrointestinal: Denies: Abdominal pain, Nausea, Vomiting Genitourinary: Denies: Incontinence, Retention Musculoskeletal: Denies: Arthralgia, Back pain Skin: Denies: Bruising, Change in color Neurological: Denies: Abnormal gait, Confusion, Headache, Seizure Psychiatric: Denies: Anxiety Hematological/Lymphatic: Denies: Anemia, Blood Clots Past Medical History - SOCIAL HISTORY Smoking Status: Former smoker Drug Use: None - RESPIRATORY Hx Respiratory Disorders: Yes Hx Asthma: Yes Hx COPD: Yes Hx Pneumonia: Yes - CARDIOVASCULAR Hx Cardio Disorders: Yes Hx Cardiac Cath: Yes (15 yrs) Hx Hypertension: Yes - NEURO Hx Neuro Disorders: Yes Hx CVA: Yes (unsure) - GI Hx GI Disorders: Yes Hx Reflux: Yes Comment:: ischemic colitis - Hx Genitourinary Disorders: No - ENDOCRINE Hx Endocrine Disorders: Yes Hx Thyroid Disease: Yes - MUSCULOSKELETAL Hx Musculoskeletal Disorders: Yes Hx Arthritis: Yes - PSYCH Hx Psych Problems: No - HEMATOLOGY/ONCOLOGY Hx Hematology/Oncology Disorders: No Family Medical History Hx Alcohol Use: Father Hx Anxiety: Mother, Brother/Sister Hx Cancer: Father, Grandparents Hx Depression: Brother/Sister Hx Diabetes: Mother, Grandparents Hx Heart Disease: Mother Hx HTN: Father Hx Resp Disorders: Mother Physical Exam - General General Appearance: Alert, Oriented x3, Cooperative, Moderate distress Limitations: No limitations - Head Head exam: Atraumatic, Normocephalic, Normal inspection Head exam detail: negative: Abrasion, Contusion, Pantoja's sign, General tenderness, Hematoma, Laceration - Eye Eye exam: Normal appearance. negative: Conjunctival injection, Periorbital swelling, Periorbital tenderness, Scleral icterus - ENT Ear exam: negative: Auricular hematoma, Auricular trauma Nasal Exam: negative: Active bleeding, Discharge, Dried blood, Foreign body Mouth exam: negative: Drooling, Laceration, Tongue elevation - Neck Neck exam: Normal inspection. negative: Meningismus, Tenderness - Respiratory Respiratory exam: Decreased breath sounds, Prolonged expiratory, Respiratory distress, Wheezes. negative: Rhonchi, Stridor - Cardiovascular Cardiovascular Exam: Normal rhythm, Normal heart sounds, Tachycardia - GI/Abdominal GI/Abdominal exam: Soft. negative: Rebound, Rigid, Tenderness - Rectal Rectal exam: Deferred - exam: Deferred - Extremities Extremities exam: Normal inspection. negative: Calf tenderness, Pedal edema, Tenderness - Back Back exam: Denies: CVA tenderness (R), CVA tenderness (L) - Neurological Neurological exam: Alert, Normal gait, Oriented X3 - Psychiatric Psychiatric exam: Normal affect, Normal mood - Skin Skin exam: Normal color. negative: Abrasion Type of lesion: negative: abrasion Course Vital Signs 02/17/18 20:05 Temperature 98.3 F Pulse Rate [ 122 H Pulse Ox Probe] Respiratory 20 Rate Blood Pressure 204/93 [Right Arm] Pulse Ox 97 - Reevaluation(s) Reevaluation #1: 02/17/18 20:28 EKG: NSR 100 Normal axis, normal intervals No acute ST-T wave changes present. Reevaluation #2: 02/17/18 20:48 Labs reviewed, Glucose 169, labs are otherwise grossly unremarkable for an acute process. Reevaluation #3: 02/17/18 20:55 Patient reassessed, reports improvement in her dyspnea symptoms. BS improved (increased wheeze to inspiration is now present), will administer albuterol and reassess. Reevaluation #4: 02/17/18 21:24 Patient reassessed, reports that she is feeling MUCH improved and that she is ready to go home. BS demonstrate only mild wheezes bilaterally, no respiratory distress noted, pulse improved 95/RA biox 96%. Patient appears stable for discharge at this time with instructions to return if symptoms worsen. Medical Decision Making - Lab Data Result diagrams: 02/17/18 20:12 02/17/18 20:12 Disposition Disposition: Discharge Clinical Impression: COPD (chronic obstructive pulmonary disease) with acute bronchitis Disposition: Home, Self-Care Condition: (2) Stable Instructions: COPD (Chronic Obstructive Pulmonary Disease) (ED) Additional Instructions: Return to ED if your symptoms worsen or if you have any concerns. Prednisone as directed. Follow-up with your family doctor in 1-3 days as directed. Prescriptions: Prednisone [Prednisone 20Mg] 20 mg PO TID #12 tab Forms: Patient Portal Access Time of Disposition: 21:27 Quality - Quality Measures Quality Measures: N/A - Blood Pressure Screening Does Patient Have Any of the Following: Active Dx of HTN Blood Pressure Classification: Hypertensive Reading Systolic Measurement: 168 Diastolic Measurement: 78 Screening for High Blood Pressure: Patient Exclusion, Hx of HTN [G9744]
[2018-02-17] MEDS ORDERED: 0.9 % SODIUM CHLORIDE 1000ML 500 ML IV SCH (20:15)
[2018-02-17 20:20] LABS: BASO % 0.3 % (0-6); EOS % 3.3 % (0-6); HEMATOCRIT 37.9 % (35.0-47.0); HEMOGLOBIN 12.5 gm/dl (11.6-16.0); LYMPH % 22.9 % (16-45); MEAN CORPUSCULAR HEMOGLOBIN 29.7 pg (27-33); MEAN PLATELET VOLUME 9.6 fl (7.4-10.4); MONO % 6.5 % (0-9); PLATELET COUNT 339 K/uL (130-400); RED BLOOD COUNT 4.21 M/uL (3.80-5.40); RED CELL DISTRIBUTION WIDTH 13.6 % (11.5-14.5); WHITE BLOOD COUNT W/O DIFF 10.2 K/uL (4.2-12.2)
[2018-02-17 20:39] LABS: ALBUMIN 4.7 g/dL (4.0-5.0); ALKALINE PHOSPHATASE 66 U/L (35-104); ALT/SGPT 19 U/L (<33); AST/SGOT 15 U/L (10.0-35.0); BLOOD UREA NITROGEN 15 mg/dL (8-23); CREATININE 0.8 mg/dL (0.5-0.9); EST GLOMERULAR FILTRATION RATE > 60 mL/min; GLUCOSE,RANDOM 169 mg/dL (74-109); TOTAL PROTEIN 7.1 g/dL (6.6-8.7)
[2018-02-17] MEDS ORDERED: ALBUTEROL SULFATE (0.083%) 2.5 MG/3 ML NEB INH SCH (21:00)
== END 2018-02-17 21:32 | disposition home or self-care (01) ==
LOC: ER 19:51
DX: J44.9 Chronic obstructive pulmonary disease, unspecified (principal); J20.9 Acute bronchitis, unspecified; R06.02 Shortness of breath; I10 Essential (primary) hypertension; Z87.891 Personal history of nicotine dependence; Z86.73 Personal history of transient ischemic attack (TIA), and cerebral infarction without residual deficits
CPT/HCPCS: 80053; 85025; 93005; 93010; 94640; 96374; 99284; J2930; J7030; J7613

== ENCOUNTER 2018-07-04 08:51 | Observation (INO) | payer BC ==
[2018-07-04] MEDS ORDERED: HYDROMORPHONE HCL 2 MG/ML VIAL IVP ONE (09:18)
[2018-07-04] MEDS ORDERED: ONDANSETRON HCL IV 4 MG/2 ML VIAL IVP ONE ×2 (09:19→10:20)
[2018-07-04 09:56] LABS: HEMATOCRIT 38.9 % (35.0-47.0); HEMOGLOBIN 12.9 gm/dl (11.6-16.0); MEAN CELL VOLUME 89.4 fl (81-97); MEAN CORPUSCULAR HEMOGLOBIN 29.7 pg (27-33); MEAN CORPUSCULAR HGB CONC 33.2 g/dl (32-36); MEAN PLATELET VOLUME 9.5 fl (7.4-10.4); PLATELET COUNT 375 K/uL (130-400); RED BLOOD COUNT 4.35 M/uL (3.80-5.40); RED CELL DISTRIBUTION WIDTH 12.9 % (11.5-14.5); WHITE BLOOD COUNT W/O DIFF 11.9 K/uL (4.2-12.2)
[2018-07-04 10:05] LABS: BLOOD UREA NITROGEN 12 mg/dL (8-23); CREATININE 0.7 mg/dL (0.5-0.9); EST GLOMERULAR FILTRATION RATE > 60 mL/min
[2018-07-04 10:08] LABS: GLUCOSE,RANDOM 160 mg/dL (74-109)
[2018-07-04 10:11] LABS: ALB/GLOB RATIO 1.9 (1.1-1.8); ALBUMIN 4.6 g/dL (4.0-5.0); ALKALINE PHOSPHATASE 70 U/L (35-104); ALT/SGPT 21 U/L (<33); AST/SGOT 19 U/L (10.0-35.0)
[2018-07-04 10:13] LABS: PLATELET ESTIMATE NORMAL (NORMAL)
--- NOTE | 2018-07-04 10:23 | Emergency Department Record ---
History of Present Illness - General Chief Complaint: Fall Injury Stated Complaint: FALL, LEFT RIB PAIN Time Seen by Provider: 07/04/18 09:15 Source: Patient Mode of Arrival: Ambulatory Limitations: No limitations - History of Present Illness Initial Comments: pt fell in bathtub hitting ribs on bathtub edge causing injury. she denies hitting her head or hurting herself any where else Onset/Timin -: Minutes(s) Fall From: Standing Place Fall Occurred: Home Loss of Consciousness: None Prolonged Down Time?: No Symptoms Prior to Fall: None Location: Chest Severity: Severe Severity scale (1-10): 10 Associated Symptoms: Chest pain, Other (posterior rib pain) - Cammie Coma Scale Eye Response: (4) Open spontaneously Motor Response: (6) Obeys commands Verbal Response: (5) Oriented [place] Total: 15 - Related Data Allergies Allergy/AdvReac Type Severity Reaction Status Date / Time hydromorphone [From Dilaudid] AdvReac HYPERSENSIT Verified 07/04/18 09:44 IVITY Travel Screening - Travel/Exposure Within Last 30 Days Have you traveled within the last 30 days?: No - Travel/Exposure Within Last Year Have you traveled outside the [place] in the last year?: No - Additonal Travel Details Have you been exposed to anyone with a communicable illness?: No - Travel Symptoms Symptom Screening: None Review of Systems Reviewed: No additional complaints except as noted below Constitutional: Reports: As per HPI. Denies: Chills, Fever, Malaise, Night sweats, Weakness, Weight change Eyes: Reports: As per HPI. Denies: Eye discharge, Eye pain, Photophobia, Vision change ENT: Reports: As per HPI. Denies: Congestion, Dental pain, Ear pain, Epistaxis , Hearing loss, Throat pain Respiratory: Reports: As per HPI. Denies: Cough, Dyspnea, Hemoptysis, Stridor, Wheezes Cardiovascular: Reports: As per HPI. Denies: Arrhythmia, Chest pain, Dyspnea on exertion, Edema, Murmurs, Orthopnea, Palpitations, Paroxysmal nocturnal dyspnea, Rheumatic Fever, Syncope Endocrine: Reports: As per HPI. Denies: Fatigue, Heat or cold intolerance, Polydipsia, Polyuria Gastrointestinal: Reports: As per HPI. Denies: Abdominal pain, Constipation, Diarrhea, Hematemesis, Hematochezia, Melena, Nausea, Vomiting Genitourinary: Reports: As per HPI. Denies: Abnormal menses, Discharge, Dyspareunia, Dysuria, Frequency, Hematuria, Incontinence, Retention, Urgency Musculoskeletal: Reports: As per HPI. Denies: Arthralgia, Back pain, Gout, Joint swelling, Myalgia, Neck pain Skin: Reports: As per HPI. Denies: Bruising, Change in color, Change in hair/ nails, Lesions, Pruritus, Rash Neurological: Reports: As per HPI. Denies: Abnormal gait, Confusion, Headache, Numbness, Paresthesias, Seizure, Tingling, Tremors, Vertigo, Weakness Psychiatric: Reports: As per HPI. Denies: Anxiety, Auditory hallucinations, Depression, Homicidal thoughts, Suicidal thoughts, Visual hallucinations Hematological/Lymphatic: Reports: As per HPI. Denies: Anemia, Blood Clots, Easy bleeding, Easy bruising, Swollen glands Past Medical History - SOCIAL HISTORY Smoking Status: Former smoker Alcohol Use: None Drug Use: None - RESPIRATORY Hx Respiratory Disorders: Yes Hx Asthma: Yes Hx COPD: Yes Hx Pneumonia: Yes - CARDIOVASCULAR Hx Cardio Disorders: Yes Hx Cardiac Cath: Yes (15 yrs) Hx Hypertension: Yes - NEURO Hx Neuro Disorders: Yes Hx CVA: Yes (unsure) - GI Hx GI Disorders: Yes Hx Reflux: Yes Comment:: ischemic colitis - Hx Genitourinary Disorders: No - ENDOCRINE Hx Endocrine Disorders: Yes Hx Diabetes: Yes Hx Thyroid Disease: Yes - MUSCULOSKELETAL Hx Musculoskeletal Disorders: Yes Hx Arthritis: Yes - PSYCH Hx Psych Problems: No - HEMATOLOGY/ONCOLOGY Hx Hematology/Oncology Disorders: No Family Medical History Any Significant Family History?: No Hx Alcohol Use: Father Hx Anxiety: Mother, Brother/Sister Hx Cancer: Father, Grandparents Hx Depression: Brother/Sister Hx Diabetes: Mother, Grandparents Hx Heart Disease: Mother Hx HTN: Father Hx Resp Disorders: Mother Physical Exam - General General Appearance: Alert, Oriented x3, Cooperative, Moderate distress - Head Head exam: Normal inspection - Eye Eye exam: Normal appearance, PERRL, EOMI Pupils: Normal accommodation - ENT ENT exam: Normal exam, Mucous membranes moist, Normal external ear exam, Normal orophraynx, TM's normal bilaterally Ear exam: Normal external inspection. negative: External canal tenderness Nasal Exam: Normal inspection. negative: Discharge, Sinus tenderness Mouth exam: Normal external inspection, Tongue normal Teeth exam: Normal inspection. negative: Dental caries Throat exam: Normal inspection. negative: Tonsillar erythema, Tonsillar exudate - Neck Neck exam: Normal inspection, Full ROM. negative: Tenderness - Respiratory Respiratory exam: Normal lung sounds bilaterally, Chest wall tenderness. negative: Respiratory distress - Cardiovascular Cardiovascular Exam: Normal rhythm, Normal heart sounds, Tachycardia - GI/Abdominal GI/Abdominal exam: Soft, Normal bowel sounds. negative: Tenderness - Rectal Rectal exam: Deferred - exam: Deferred - Extremities Extremities exam: Normal inspection, Full ROM, Normal capillary refill. negative: Tenderness - Back Back exam: Reports: Normal inspection, Full ROM. Denies: Muscle spasm, Rash noted, Tenderness - Neurological Neurological exam: Alert, CN II-XII intact, Normal gait, Oriented X3 - Psychiatric Psychiatric exam: Normal affect, Normal mood - Skin Skin exam: Dry, Intact, Normal color, Warm Course Vital Signs 07/04/18 07/04/18 07/04/18 08:52 09:39 09:48 Temperature 97.9 F Pulse Rate 113 H Pulse Rate [ 82 79 Pulse Ox Probe] Respiratory 20 16 16 Rate Blood Pressure 193/105 Blood Pressure 90/45 122/66 [Right Arm] Pulse Ox 94 L 96 95 07/04/18 10:06 Temperature Pulse Rate Pulse Rate [ 79 Pulse Ox Probe] Respiratory 16 Rate Blood Pressure Blood Pressure 146/79 [Right Arm] Pulse Ox 96 - Reevaluation(s) Reevaluation #1: 07/04/18 10:24 pt had only .25mg of dilaudid when she became diaphoretic and her pressure dropped to 90/. pts pressure improved w fluid bolus Reevaluation #2: 07/04/18 13:08 pt had n/v . zofran didnt help, phenergan did Medical Decision Making - Lab Data Result diagrams: 07/04/18 09:49 07/04/18 10:55 Lab Results 07/04/18 07/04/18 Range/Units 09:49 09:49 WBC 11.9 (4.2-12.2) K/uL RBC 4.35 (3.80-5.40) M/uL Hgb 12.9 (11.6-16.0) gm/dl Hct 38.9 (35.0-47.0) % MCV 89.4 (81-97) fl MCH 29.7 (27-33) pg MCHC 33.2 (32-36) g/dl RDW 12.9 (11.5-14.5) % Plt Count 375 (130-400) K/uL MPV 9.5 (7.4-10.4) fl Neutrophils % 78.0 (47-80) % Band Neutrophils % 2.0 (0-5) % Eosinophils % Not Reportable Basophils % Not Reportable Lymphocytes 13.0 L (16-45) % Monocytes 4.0 (0-9) % Platelet Estimate Normal (NORMAL) RBC Morphology Normal Eosinophil Count 3.0 (0-6) % Sodium 125 L (136-145) mmol/L Potassium 4.5 (3.4-4.5) mmol/L Chloride 84 L (98-107) mmol/L Carbon Dioxide 21.0 L (22-29) mmol/L Anion Gap 20.0 H (7-16) BUN 12 (8-23) mg/dL Creatinine 0.7 (0.5-0.9) mg/dL Estimated GFR > 60 mL/min Random Glucose 160 H (74-109) mg/dL Calcium 9.5 (8.8-10.2) mg/dL Total Bilirubin 0.30 (0.2-1.0) mg/dL AST 19 (10.0-35.0) U/L ALT 21 (<33) U/L Alkaline Phosphatase 70 (35-104) U/L Total Protein 7.0 (6.6-8.7) g/dL Albumin 4.6 (4.0-5.0) g/dL Globulin 2.4 (1.4-4.8) gm/dL Albumin/Globulin Ratio 1.9 H (1.1-1.8) Disposition Disposition: Admit Clinical Impression: Hyponatremia Ribs, multiple fractures Qualifiers: Encounter type: initial encounter Fracture type: closed Laterality: left Qualified Code(s): S22.42XA - Multiple fractures of ribs, left side, initial encounter for closed fracture Lung contusion Qualifiers: Encounter type: initial encounter Laterality: left Qualified Code(s): S27.321A - Contusion of lung, unilateral, initial encounter Disposition: Still a Patient at [facility] [place] Decision to Admit: Admit from ER Decision to Admit Date: 07/04/18 Decision to Admit Time: 13:13 Forms: Patient Portal Access Quality - Quality Measures Quality Measures: N/A - Blood Pressure Screening Does Patient Have Any of the Following: Active Dx of HTN Blood Pressure Classification: Hypertensive Reading Systolic Measurement: 193 Diastolic Measurement: 105 Screening for High Blood Pressure: Patient Exclusion, Hx of HTN [[id number]]
[2018-07-04] MEDS ORDERED: PROMETHAZINE HCL 6.25 MG in 0.9 % SODIUM CHLORIDE 100ML 100 ML IVPB ONE (11:05)
[2018-07-04 11:51] LABS: URINE APPEARANCE CLEAR; URINE BILIRUBIN NEGATIVE (NEGATIVE); URINE BLOOD TRACE-I (NEGATIVE); URINE COLOR YELLOW; URINE KETONE NEGATIVE (NEGATIVE); URINE LEUKOCYTE ESTERASE NEGATIVE (NEGATIVE); URINE NITRITE NEGATIVE (NEGATIVE); URINE PROTEIN NEGATIVE (NEGATIVE); URINE UROBILINOGEN 0.2 E.U./dL (0.20 - 1.00)
[2018-07-04 12:05] LABS: URINE BACTERIA FEW; URINE RBC 0 - 2 (NONE SEEN); URINE SQUAMOUS EPITHELIAL CELL 0 - 2 /hpf; URINE WBC 0 - 2 (0-2/hpf)
[2018-07-04] MEDS ORDERED: IPRATROPIUM/ALBUTEROL (0.5MG/3MG) NEB INH ONE (13:12)
[2018-07-04] MEDS ORDERED: **ER** KETAMINE HCL 500MG/10ML VIAL IV ONE (15:43)
[2018-07-04] MEDS ORDERED: FENTANYL PF 100MCG/2ML VIAL IV ONE (15:43)
[2018-07-04] MEDS ORDERED: CYCLOBENZAPRINE 10MG TABLET PO PRN (15:46)
[2018-07-04] MEDS ORDERED: ALBUTEROL SULFATE (0.083%) 2.5 MG/3 ML NEB INH PRN (15:46)
[2018-07-04] MEDS ORDERED: PROMETHAZINE HCL 6.25 MG in 0.9 % SODIUM CHLORIDE 100ML 100 ML IVPB PRN (15:46)
[2018-07-04] MEDS ORDERED: MORPHINE SULFATE 10 MG/ML VIAL IVP PRN (15:46)
[2018-07-04] MEDS ORDERED: ACETAMINOPHEN 500 MG TABLET PO PRN (15:46)
[2018-07-04] MEDS ORDERED: LIDOCAINE 2% MDV (20MG/ML) 20ML VIAL IV ONE (15:53)
[2018-07-04] MEDS ORDERED: BUPIVACAINE 0.5% (5MG/ML) PF 30ML VIAL IVP ONE (15:53)
[2018-07-04] MEDS: IPRATROPIUM/ALBUTEROL (0.5MG/3MG) NEB INH SCH ×2 (17:04→21:53)
[2018-07-04] MEDS ORDERED: DIPHENHYDRAMINE HCL 50 MG/ML VIAL IVP PRN (17:29)
[2018-07-04] MEDS: IBUPROFEN 600 MG TABLET PO PRN (20:29)
[2018-07-04] MEDS: SIMVASTATIN 10MG TABLET PO SCH (21:29)
[2018-07-04] MEDS: METFORMIN 500 MG TABLET PO SCH (21:29)
[2018-07-04] MEDS: PANTOPRAZOLE SODIUM 40 MG TABLET PO SCH (21:29)
[2018-07-04] MEDS: BUDESONIDE IH SCH (21:54)
[2018-07-04] MEDS: [UNRECOGNIZED DRUG - OTHER] IH SCH (21:54)
[2018-07-04] MEDS: FORMOTEROL FUMARATE IH SCH (21:54)
[2018-07-05] MEDS: IPRATROPIUM/ALBUTEROL (0.5MG/3MG) NEB INH SCH ×4 (06:15→22:04)
[2018-07-05] MEDS: PANTOPRAZOLE SODIUM 40 MG TABLET PO SCH ×2 (06:18→21:17)
[2018-07-05] MEDS: IBUPROFEN 600 MG TABLET PO PRN (06:19)
[2018-07-05 06:25] LABS: BASO % 0.3 % (0-6); EOS % 2.2 % (0-6); GRAN % 62.8 % (47-80); HEMATOCRIT 36.6 % (35.0-47.0); HEMOGLOBIN 11.9 gm/dl (11.6-16.0); LYMPH % 26.3 % (16-45); MEAN CELL VOLUME 91.5 fl (81-97); MEAN CORPUSCULAR HEMOGLOBIN 29.8 pg (27-33); MEAN CORPUSCULAR HGB CONC 32.5 g/dl (32-36); MEAN PLATELET VOLUME 9.7 fl (7.4-10.4); MONO % 8.4 % (0-9); PLATELET COUNT 347 K/uL (130-400); RED CELL DISTRIBUTION WIDTH 13.1 % (11.5-14.5); WHITE BLOOD COUNT W/O DIFF 6.3 K/uL (4.2-12.2)
[2018-07-05 06:44] LABS: ALBUMIN 4.3 g/dL (4.0-5.0); ALKALINE PHOSPHATASE 63 U/L (35-104); ALT/SGPT 17 U/L (<33); AST/SGOT 12 U/L (10.0-35.0); BLOOD UREA NITROGEN 9 mg/dL (8-23); CREATININE 0.7 mg/dL (0.5-0.9); EST GLOMERULAR FILTRATION RATE > 60 mL/min; GLUCOSE,RANDOM 121 mg/dL (74-109); TOTAL PROTEIN 6.4 g/dL (6.6-8.7)
--- NOTE | 2018-07-05 07:23 | CT SCAN REPORT ---
EXAM: POST CONTRAST CT OF THE CHEST HISTORY: LEFT SIDED RIB PAIN AFTER FALL IN TUB. TECHNIQUE: Post contrast CT of the chest was performed with 100 ml of Omnipaque 300 intravenous contrast. Comparison: Chest radiograph 07/27/17. FINDINGS: No pericardial effusion. Mild thoracic aortic calcification without evidence of aneurysm or dissection. No pulmonary artery filling defects detected. Heterogeneous nodules thyroid gland with a right lobe nodule measuring up to 1.8 cm. No mediastinal, hilar or axillary lymphadenopathy detected. Minimal focal opacity in the lateral left upper lobe (series 3 image 77), adjacent rib fracture noted. Otherwise, no focal consolidation besides mild dependent lower lobe atelectasis. Scattered pulmonary blebs bilaterally. No pneumothorax or pleural effusion. Indeterminate density 10 mm left adrenal nodule. The visualized upper abdominal structures are otherwise unremarkable. Suggestion of subtle nondisplaced fractures involving the anterior lateral aspects of the left ribs four and five. Nondisplaced acute fractures of left ribs six, seven and eight laterally. IMPRESSION: 1. MULTIPLE ACUTE NONDISPLACED LEFT RIB FRACTURES ABOVE. 2. SMALL FOCAL CONSOLIDATION WITHIN THE LEFT UPPER LOBE ADJACENT TO A RIB FRACTURE POSSIBLY REPRESENTING A SMALL CONTUSION. 3. OTHERWISE, NO ACUTE INTRATHORACIC FINDINGS. 4. ENLARGED MULTINODULAR THYROID GLAND. RECOMMEND DEDICATED THYROID ULTRASOUND FOLLOW-UP ON A NONEMERGENT BASIS. 5. SMALL INDETERMINATE 10 MM LEFT ADRENAL GLAND NODULE. JOB NUMBER: [id number] [facility]
[2018-07-05] MEDS: LISINOPRIL 20 MG TABLET PO SCH ×2 (08:00→10:29)
[2018-07-05] MEDS: METFORMIN 500 MG TABLET PO SCH ×3 (08:00→21:16)
[2018-07-05] MEDS: LIDOCAINE 5% PATCH TOP SCH (08:00)
[2018-07-05] MEDS: HYDROCHLOROTHIAZIDE 12.5 MG CAPSULE PO SCH ×2 (08:01→10:27)
[2018-07-05] MEDS: LORATADINE 10 MG TABLET PO SCH (09:05)
[2018-07-05] MEDS: BIFIDOBACTERIUM INFANTIS 4 MG CAPSULE PO SCH (09:05)
[2018-07-05] MEDS: DOCUSATE SODIUM 100 MG CAPSULE PO SCH (09:06)
[2018-07-05] MEDS: FORMOTEROL FUMARATE IH SCH ×2 (09:12→22:05)
[2018-07-05] MEDS: [UNRECOGNIZED DRUG - OTHER] IH SCH ×2 (09:12→22:05)
[2018-07-05] MEDS: BUDESONIDE IH SCH ×2 (09:12→22:05)
--- NOTE | 2018-07-05 11:58 | History & Physical ---
History of Present Illness - Date of Service Date of Service for History & Physical: 07/05/18 - History of Present Illness Admitting Diagnosis: fxs ribs 4-8, hyponatremia History of Present Illness: PMH: HTN, HLD, DMII, Asthma, COPD ED course: PT states that at 7:30AM on 07/04 she went to shower. She states that when she lifted her leg to wash her genital area, she lost her balance, and fell with her left ribs hitting the edge of the tub and landing on her bottom. She denies hitting her head or having any spinal pain at this time. She states that she grabbed the handrail and lifted herself out of the tub because the pain wasn't very bad initially. Gradually within 30 minutes of sitting on the sofa, her pain progressively got worse and she called her significant other to take her to the ED. Vitals: P 113, T: afebrile, BP: 193/105, O2: 94% on RA Labs: CBC and CMP wnl except sodium 124. Chest CT: Possible L lung contusion, ribs 4-8 with nondisplaced fx, thyroid nodules, and 10mm adrenal gland nodule. Anesthesia: Block done Admitted for further pain control and monitoring. 07/05: Today pt states that she is doing well with the nerve block. Still complains of pain but it is tolerable, rates 2/10. Hurts to cough, blow nose, or increase abdominal pressure. Denies SOB. Complains of chronic constipation - usually goes once weekly. Denies abd pain. VS wnl. Sodium increased to 134. Travel Screening - Travel/Exposure Within Last 30 Days Have you traveled within the last 30 days?: No - Travel/Exposure Within Last Year Have you traveled outside the [place] in the last year?: No - Additonal Travel Details Have you been exposed to anyone with a communicable illness?: No - Travel Symptoms Symptom Screening: None Review of Systems Constitutional: Reports: As per HPI. Denies: Chills, Fever, Malaise, Night sweats, Weakness, Weight change Eyes: Reports: As per HPI. Denies: Eye discharge, Eye pain, Photophobia, Vision change ENT: Reports: As per HPI. Denies: Congestion, Dental pain, Ear pain, Epistaxis , Hearing loss, Throat pain Respiratory: Reports: As per HPI. Denies: Cough, Dyspnea, Hemoptysis, Stridor, Wheezes Cardiovascular: Reports: Chest pain (due to fx). Denies: Arrhythmia, Dyspnea on exertion, Edema, Murmurs, Orthopnea, Palpitations, Paroxysmal nocturnal dyspnea, Rheumatic Fever, Syncope Endocrine: Denies: Polyuria Gastrointestinal: Reports: Constipation. Denies: Abdominal pain, Diarrhea, Nausea, Vomiting Genitourinary: Denies: Dysuria, Frequency Musculoskeletal: Reports: Myalgia. Denies: Arthralgia, Back pain, Gout, Joint swelling, Neck pain Skin: Denies: Bruising, Change in color, Change in hair/nails, Lesions, Pruritus , Rash Neurological: Denies: Abnormal gait, Confusion, Headache, Vertigo, Weakness Psychiatric: Denies: Depression Past Medical History - SOCIAL HISTORY Smoking Status: Former smoker - RESPIRATORY Hx Respiratory Disorders: Yes Hx Asthma: Yes Hx COPD: Yes Hx Pneumonia: Yes - CARDIOVASCULAR Hx Cardio Disorders: Yes Hx Cardiac Cath: Yes (15 yrs) Hx Hypertension: Yes - NEURO Hx Neuro Disorders: Yes Hx CVA: Yes (unsure) - GI Hx GI Disorders: Yes Hx Reflux: Yes Comment:: ischemic colitis - Hx Genitourinary Disorders: No - ENDOCRINE Hx Endocrine Disorders: Yes Hx Diabetes: Yes Hx Thyroid Disease: Yes - MUSCULOSKELETAL Hx Musculoskeletal Disorders: Yes Hx Arthritis: Yes - PSYCH Hx Psych Problems: No - HEMATOLOGY/ONCOLOGY Hx Hematology/Oncology Disorders: No Family Medical History Any Significant Family History?: No Hx Alcohol Use: Father Hx Anxiety: Mother, Brother/Sister Hx Cancer: Father, Grandparents Hx Depression: Brother/Sister Hx Diabetes: Mother, Grandparents Hx Heart Disease: Mother Hx HTN: Father Hx Resp Disorders: Mother H&P Meds/Allergies - Allergies Allergies: Allergies Allergy/AdvReac Type Severity Reaction Status Date / Time hydromorphone [From Dilaudid] AdvReac HYPERSENSIT Verified 07/04/18 09:44 IVITY - Active Medications Active Medications: Current Medications Acetaminophen (Tylenol 500mg Tab) 1,000 mg PO Q6H PRN PRN Reason: PAIN - MILD(1-4)/FEVER Last Admin: 07/04/18 17:00 Dose: 1,000 mg Albuterol Sulfate () 2.5 mg INH RESP.Q4H PRN PRN Reason: DIFFICULTY IN BREATHING Albuterol/Ipratropium (Duoneb) 3 ml INH 0600,1130,1700,2030 [facility] Last Admin: 07/05/18 11:17 Dose: 3 ml Cyclobenzaprine HCl (Flexeril) 10 mg PO DAILY PRN PRN Reason: back pain Diphenhydramine HCl (Benadryl) 12.5 mg IVP Q4H PRN PRN Reason: GI UPSET Docusate Sodium (Colace) 200 mg PO DAILY [facility] Last Admin: 07/05/18 09:06 Dose: 200 mg Hydrochlorothiazide (Hctz 12.5mg) 12.5 mg PO DAILY [facility] Last Admin: 07/05/18 10:27 Dose: Not Given Ibuprofen (Motrin 600mg) 600 mg PO Q8H PRN PRN Reason: PAIN - MILD TO MODERATE (1-7) Last Admin: 07/05/18 06:19 Dose: 600 mg Lidocaine (Lidoderm) 1 each TOP 0800 [facility] Last Admin: 07/05/18 08:00 Dose: 1 each Lisinopril (Zestril) 20 mg PO DAILY [facility] Last Admin: 07/05/18 10:29 Dose: Not Given Loratadine (Claritin) 10 mg PO DAILY [facility] Last Admin: 07/05/18 09:05 Dose: 10 mg Metformin HCl (Glucophage Ir) 500 mg PO BID [facility] Last Admin: 07/05/18 10:27 Dose: Not Given Miscellaneous (Remove Patch) 1 each TD 2000 [facility] Morphine Sulfate (Morphine Sulfate) 1 mg IVP Q4H PRN PRN Reason: PAIN - SEVERE (8-10) Last Admin: 07/05/18 11:19 Dose: 1 mg Non-Formulary Medication (Budesonide/Formoterol Fumarate [Symbicort 160-4.5 Mcg Inhaler]) 2 inh IH Q12H [facility] Last Admin: 07/05/18 09:12 Dose: 2 inh Ondansetron HCl (Zofran) 4 mg IVP Q8H PRN PRN Reason: NAUSEA Pantoprazole Sodium (Protonix) 40 mg PO 0700,2200 [facility] Last Admin: 07/05/18 06:18 Dose: 40 mg Simvastatin (Zocor) 10 mg PO QHS [facility] Last Admin: 07/04/18 21:29 Dose: 10 mg Physical Exam - Vital Signs Vital Signs: Vital Signs - Last 24 Hrs Temp Pulse Pulse Resp BP BP Pulse Ox 07/05/18 11:18 80 14 96 07/05/18 09:12 87 14 95 07/05/18 09:00 20 07/05/18 07:50 97.9 F 97 H 18 184/91 94 L 07/05/18 06:18 83 18 97 07/05/18 06:00 97.9 F 79 18 144/81 96 07/05/18 00:00 97.9 F 83 20 147/68 99 07/04/18 22:01 96 07/04/18 21:58 80 16 94 L 07/04/18 21:00 100 H 20 07/04/18 20:00 97.7 F 100 H 20 154/68 96 07/04/18 17:43 97.6 F 101 H 16 145/76 94 L 07/04/18 17:07 98 H 16 07/04/18 17:00 99 H 16 07/04/18 15:30 97.7 F 95 H 16 163/72 94 L 07/04/18 13:54 62 16 153/75 96 07/04/18 13:25 62 16 07/04/18 12:48 90 16 163/76 - General General Appearance: Alert, Oriented x3, Cooperative, Moderate distress (only with movement) Limitations: Physical limitation (2/2 to pain ) - Head Head exam: Normal inspection - Eye Eye exam: Normal appearance, EOMI - ENT ENT exam: Normal exam, Normal external ear exam Ear exam: Normal external inspection Nasal Exam: Normal inspection. negative: Discharge Mouth exam: Normal external inspection Teeth exam: Normal inspection - Neck Neck exam: Normal inspection, Full ROM. negative: Tenderness - Respiratory Respiratory exam: Normal lung sounds bilaterally, Chest wall tenderness (left side with light palpation along the ribs). negative: Accessory muscle use, Decreased breath sounds, Rales, Respiratory distress, Rhonchi, Stridor, Wheezes - Cardiovascular Cardiovascular Exam: Regular rate, Normal rhythm, Normal heart sounds - GI/Abdominal GI/Abdominal exam: Soft, Hypoactive bowel sounds. negative: Tenderness - Rectal Rectal exam: Deferred - exam: Deferred - Extremities Extremities exam: Normal inspection, Full ROM - Back Back exam: Reports: Normal inspection, Full ROM. Denies: Muscle spasm, Tenderness - Neurological Neurological exam: Alert, Normal gait, Oriented X3 - Psychiatric Psychiatric exam: Normal affect, Normal mood - Skin Skin exam: Dry, Intact, Normal color, Warm Results - Labs Result Diagrams: 07/05/18 06:02 07/05/18 06:02 Labs Last 24 Hours: Laboratory Results - last 24 hr 07/04/18 07/04/18 07/05/18 11:45 16:05 06:02 WBC 6.3 RBC 4.00 Hgb 11.9 Hct 36.6 MCV 91.5 MCH 29.8 MCHC 32.5 RDW 13.1 Plt Count 347 MPV 9.7 Gran % 62.8 Lymphocytes % 26.3 Monocytes % 8.4 Eosinophils % 2.2 Basophils % 0.3 Sodium Potassium Chloride Carbon Dioxide Anion Gap BUN Creatinine Estimated GFR POC Glucose 103 Random Glucose Calcium Total Bilirubin AST ALT Alkaline Phosphatase Total Protein Albumin Globulin Albumin/Globulin Ratio Urine Color Yellow Urine Appearance Clear Urine pH 7.5 Ur Specific [place] 1.010 Urine Protein Negative Urine Glucose (UA) 100 mg/dl H Urine Ketones Negative Urine Blood Trace-i Urine Nitrite Negative Urine Bilirubin Negative Urine Urobilinogen 0.2 Ur Leukocyte Esterase Negative Urine RBC 0 - 2 Urine WBC 0 - 2 U Non-Squamous Epi Cells 0 - 2 Urine Bacteria Few 07/05/18 06:02 WBC RBC Hgb Hct MCV MCH MCHC RDW Plt Count MPV Gran % Lymphocytes % Monocytes % Eosinophils % Basophils % Sodium 134 L Potassium 4.1 Chloride 94 L Carbon Dioxide 27.0 Anion Gap 13.0 BUN 9 Creatinine 0.7 Estimated GFR > 60 POC Glucose Random Glucose 121 H Calcium 9.3 Total Bilirubin 0.30 AST 12 ALT 17 Alkaline Phosphatase 63 Total Protein 6.4 L Albumin 4.3 Globulin 2.1 Albumin/Globulin Ratio 2.0 H Urine Color Urine Appearance Urine pH Ur Specific [place] Urine Protein Urine Glucose (UA) Urine Ketones Urine Blood Urine Nitrite Urine Bilirubin Urine Urobilinogen Ur Leukocyte Esterase Urine RBC Urine WBC U Non-Squamous Epi Cells Urine Bacteria VTE H&P Assessment - Risk for VTE Risk for VTE: Yes Risk Level: Low Risk Assessment Date: 07/05/18 Risk Assessment Time: 12:16 VTE Orders Placed or Will Be Placed: Yes Plan - Inpatient Certification Inpatient Certification: Admit to inpatient care: Based on my medical assessment, after consideration of patient's risk factors (age, co-morbidities and patient presenting symptoms and acuity), I expect that this patient will remain in the hospital greater than or equal to two midnights and that the services needed warrant inpatient care because: Patient Risk Factors: [] Estimated length of stay: [] The patient may reasonably be expected to be discharged or transferred to a hospital within 96 hours after admission to [facility]. Services needed: [] Post hospital care (if known): [] I certify that my determination is in accordance with my understanding of Medicare requirements for reasonable and necessary inpatient services. - Detailed Diagnosis and Plan (1) Ribs, multiple fractures Current Visit: Yes Status: Acute Qualifiers: Encounter type: initial encounter Fracture type: closed Laterality: left Qualified Code(s): S22.42XA - Multiple fractures of ribs, left side, initial encounter for closed fracture Base Code: S22.49XA - MULTIPLE FRACTURES OF RIBS, UNSP SIDE, INIT FOR CLOS FX Priority: High Comment: - Pain currently controlled with nerve block and ibuprofen/tylenol. - Spoke with radiologist this AM and he was concerned regarding small pneumothorax and rec rpt study in 3 hours. Pneumothorax has reduced from 4mm to 2mm and he stated just to monitor that it is resolving and not increasing in size. No need for chest tube at this time. - Pt denies any SOB. - Rpt CXR in AM. (2) Hyponatremia Current Visit: Yes Status: Acute Base Code: E87.1 - HYPO-OSMOLALITY AND HYPONATREMIA Priority: High Comment: - Pt states that she saw her dentist and her BP was high. - Her dentist recommended that she cut salt out of her diet so she has only been using a salt substitute. She also states she drinks alot of free water throughout the day at home. - Continue free water restriction and counseled regarding salt intake to prevent hyponatremia in the future. - Na level up to 134 today. - No symptoms of confusion or AMS. (3) COPD (chronic obstructive pulmonary disease) Current Visit: Yes Status: Chronic Qualifiers: COPD type: unspecified COPD Qualified Code(s): J44.9 - Chronic obstructive pulmonary disease, unspecified Base Code: J44.9 - CHRONIC OBSTRUCTIVE PULMONARY DISEASE, UNSPECIFIED Priority : Medium Comment: - Resp on board. Inhalers as prescribed. (4) HTN, goal below 150/90 Current Visit: Yes Status: Chronic Base Code: I10 - ESSENTIAL (PRIMARY) HYPERTENSION Priority: Medium Comment: - Continue home medications as prescribed. Currently normotensive. 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 - Disposition Likely home tomorrow if Pneumo continues to resolve, pain controlled, and Na+ back to normal range. Pt will need thyroid U/S and evaluation of adrenal gland outpt.
[2018-07-05] MEDS ORDERED: IBUPROFEN 400 MG TABLET PO PRN (12:30)
[2018-07-05] MEDS: IBUPROFEN 400 MG TABLET PO SCH ×2 (14:31→21:16)
--- NOTE | 2018-07-05 14:51 | RADIOLOGY REPORT ---
EXAM: CHEST , TWO VIEWS HISTORY: RIB FRACTURES AND PAIN WITH BREATHING. TECHNIQUE: Two views of the chest were obtained. Comparison: CT of the chest 07/04/18. Chest radiograph 07/27/17. FINDINGS: The cardiac silhouette is within normal size limits. The pulmonary vasculature is nondilated. Trace left apical pneumothorax with approximately 4 mm pleural separation, not appreciated on prior imaging. New minimal blunting of the left lateral costophrenic angle. No definite focal pulmonary opacity is appreciated radiographically. Rib fractures are better seen on previous chest CT. No definite new osseous findings. IMPRESSION: 1. TRACE LEFT APICAL PNEUMOTHORAX MEASURING 4 MM IN PLEURAL SEPARATION AT THE [facility]. FINDING WAS RELAYED TO MANAGING PROVIDER, DR. FORREST. 2. NEW MILD BLUNTING OF THE LEFT COSTOPHRENIC ANGLES WHICH COULD REPRESENT ATELECTASIS OR A SMALL AMOUNT OF PLEURAL FLUID. 3. NONDISPLACED LEFT SIDED RIB FRACTURES ARE BETTER SEEN ON PRIOR CT. NO DEFINITE NEW OSSEOUS FINDINGS. [facility]: [id number] [facility]
--- NOTE | 2018-07-05 14:57 | RADIOLOGY REPORT ---
EXAM: CHEST, THREE VIEWS HISTORY: RIB FRACTURES, FOLLOW-UP POSSIBLE LEFT PNEUMOTHORAX. TECHNIQUE: Frontal PA inspiratory, expiratory, and right lateral decubitus views of the chest were obtained. Comparison: Two view chest radiograph 05/05/18 at 7:40 a.m. FINDINGS: The cardiac silhouette is stable in size. Likely a tiny left apical pneumothorax measures 2 mm on expiration images, difficult to visualize on inspiratory image as well as decubitus view. Again suggestion of minimal left pleural fluid. IMPRESSION: INTERVAL DECREASED APPEARANCE OF TINY LEFT APICAL PNEUMOTHORAX NOW MEASURING 2 MM AND ONLY SEEN ON EXPIRATION IMAGE. LIKELY MINIMAL LEFT PLEURAL FLUID PERSISTS. JOB NUMBER: [id number] MTDD
[2018-07-05] MEDS: ONDANSETRON HCL IV 4 MG/2 ML VIAL IVP PRN (15:04)
[2018-07-05] MEDS: ACETAMINOPHEN 500 MG TABLET PO SCH ×2 (18:22→19:32)
[2018-07-05] MEDS: POLYETHYLENE GLY 17 GM PACKET PO SCH (18:22)
[2018-07-05] MEDS ORDERED: HYDRALAZINE 20MG/ML VIAL IV ONE ×2 (18:57→19:29)
[2018-07-05] MEDS: SIMVASTATIN 10MG TABLET PO SCH (21:16)
[2018-07-05] MEDS: GUAIFENESIN 1,200 MG TABLET PO SCH (21:17)
[2018-07-05] MEDS: REMOVE PATCH 1 EACH MISC TD SCH (21:20)
[2018-07-05] MEDS ORDERED: HYDRALAZINE 20MG/ML VIAL IV PRN (22:34)
[2018-07-06] MEDS: ACETAMINOPHEN 500 MG TABLET PO SCH ×4 (00:18→17:51)
[2018-07-06] MEDS: PANTOPRAZOLE SODIUM 40 MG TABLET PO SCH ×2 (06:03→21:14)
[2018-07-06] MEDS: IBUPROFEN 400 MG TABLET PO SCH (06:04)
[2018-07-06] MEDS: IPRATROPIUM/ALBUTEROL (0.5MG/3MG) NEB INH SCH ×4 (06:04→22:09)
[2018-07-06 06:12] LABS: BASO % 0.2 % (0-6); EOS % 1.7 % (0-6); GRAN % 66.2 % (47-80); HEMATOCRIT 38.3 % (35.0-47.0); HEMOGLOBIN 12.4 gm/dl (11.6-16.0); LYMPH % 24.1 % (16-45); MEAN CELL VOLUME 91.6 fl (81-97); MEAN CORPUSCULAR HEMOGLOBIN 29.7 pg (27-33); MEAN CORPUSCULAR HGB CONC 32.4 g/dl (32-36); MEAN PLATELET VOLUME 9.7 fl (7.4-10.4); MONO % 7.8 % (0-9); PLATELET COUNT 343 K/uL (130-400); RED BLOOD COUNT 4.18 M/uL (3.80-5.40); RED CELL DISTRIBUTION WIDTH 13.3 % (11.5-14.5); WHITE BLOOD COUNT W/O DIFF 9.1 K/uL (4.2-12.2)
[2018-07-06 06:28] LABS: ALB/GLOB RATIO 1.8 (1.1-1.8); ALBUMIN 4.3 g/dL (4.0-5.0); ALKALINE PHOSPHATASE 63 U/L (35-104); ALT/SGPT 16 U/L (<33); AST/SGOT 12 U/L (10.0-35.0); BLOOD UREA NITROGEN 14 mg/dL (8-23); CREATININE 0.8 mg/dL (0.5-0.9); EST GLOMERULAR FILTRATION RATE > 60 mL/min; GLUCOSE,RANDOM 119 mg/dL (74-109); TOTAL PROTEIN 6.7 g/dL (6.6-8.7)
[2018-07-06] MEDS: BUDESONIDE IH SCH ×2 (08:12→20:07)
[2018-07-06] MEDS: [UNRECOGNIZED DRUG - OTHER] IH SCH ×2 (08:12→20:07)
[2018-07-06] MEDS: FORMOTEROL FUMARATE IH SCH ×2 (08:12→20:07)
[2018-07-06] MEDS: LISINOPRIL 20 MG TABLET PO SCH ×2 (08:14→10:10)
[2018-07-06] MEDS: HYDROCHLOROTHIAZIDE 12.5 MG CAPSULE PO SCH ×2 (08:14→09:51)
[2018-07-06] MEDS: LIDOCAINE 5% PATCH TOP SCH ×2 (08:15→13:51)
[2018-07-06] MEDS: ONDANSETRON HCL IV 4 MG/2 ML VIAL IVP PRN (09:12)
[2018-07-06] MEDS ORDERED: LISINOPRIL 20 MG TABLET PO ONE (09:45)
[2018-07-06] MEDS ORDERED: CYCLOBENZAPRINE 10MG TABLET PO ONE (09:52)
[2018-07-06] MEDS ORDERED: HYDROCHLOROTHIAZIDE 12.5 MG CAPSULE PO SCH ×2 (10:00)
--- NOTE | 2018-07-06 11:33 | Physician Progress Note ---
Subjective - Date Date of Physician Progress Note: 07/06/18 - Subjective Subjective Comment: Pt states that her pain in her ribs is tolerable but she has significant pain in her neck. Denies any fever/ chills/ visual disturbance. Complains of mild headache. Has been taking tylenol and ibuprofen for pain control. refusing any medication that contains morphine. Objective - Vital Signs Vital Signs: Vital Signs - Last 24 Hrs Temp Pulse Pulse Resp BP Pulse Ox 07/06/18 10:29 95 H 16 166/68 94 L 07/06/18 09:40 98 H 18 176/59 93 L 07/06/18 09:20 93 H 18 207/80 94 L 07/06/18 09:05 93 H 18 212/102 07/06/18 09:00 102 H 16 205/82 07/06/18 08:13 100 H 16 96 07/06/18 07:40 97.8 F 86 18 177/75 98 07/06/18 06:06 76 16 97 07/06/18 06:00 98.0 F 75 18 160/68 98 07/06/18 00:00 97.7 F 95 H 20 154/67 98 07/05/18 22:08 107 H 16 94 L 07/05/18 22:07 105 H 16 94 L 07/05/18 21:15 107 H 20 152/57 92 L 07/05/18 20:30 97.9 F 113 H 20 148/57 93 L 07/05/18 20:00 117 H 20 145/57 95 07/05/18 19:54 115 H 18 07/05/18 19:25 104 H 20 172/71 95 07/05/18 18:00 98.2 F 94 H 18 201/87 95 07/05/18 17:27 79 14 96 07/05/18 15:05 93 H 18 186/87 95 07/05/18 14:00 98.1 F 95 H 18 184/71 94 L - General General Appearance: Alert, Oriented x3, Cooperative, Mild distress Limitations: Physical limitation (2/2 to pain in ribs whenn shifting positions) - Head Head exam: Normal inspection - Eye Eye exam: Normal appearance, EOMI Pupils: Normal accommodation - ENT ENT exam: Normal exam, Normal external ear exam Ear exam: Normal external inspection Nasal Exam: Normal inspection. negative: Discharge Mouth exam: Normal external inspection Teeth exam: Normal inspection Throat exam: Normal inspection. negative: Tonsillar erythema, Tonsillar exudate - Neck Neck exam: Tenderness (paraspinal muscles in the neck, spasm present.) - Respiratory Respiratory exam: Normal lung sounds bilaterally, Chest wall tenderness (left side with light palpation along the ribs). negative: Accessory muscle use, Decreased breath sounds, Rales, Respiratory distress, Rhonchi, Stridor, Wheezes - Cardiovascular Cardiovascular Exam: Regular rate, Normal rhythm, Normal heart sounds - GI/Abdominal GI/Abdominal exam: Soft, Hypoactive bowel sounds. negative: Tenderness - Rectal Rectal exam: Deferred - exam: Deferred - Extremities Extremities exam: Normal inspection, Full ROM - Back Back exam: Reports: Normal inspection, Full ROM. Denies: Muscle spasm, Tenderness - Neurological Neurological exam: Alert, Oriented X3 - Psychiatric Psychiatric exam: Normal affect, Normal mood - Skin Skin exam: Dry, Intact, Normal color, Warm Assessment and Plan - Assessment and Plan (1) HTN, goal below 150/90 Current Visit: Yes Status: Chronic Base Code: I10 - ESSENTIAL (PRIMARY) HYPERTENSION Priority: High Comment: - Significantly elevated pressures x 1 day. Could be due to acute and frequent NSAID use. - Will talk to the pt about trying tramadol rather than NSAIDS to see if that decreases BP. - Increased daily lisinopril from 20mg ->40mg - Increased daily HCTZ from 12.5 -> 25mg - Hydralazine Q2 hours if elevated > 179/99 (2) Neck pain Current Visit: Yes Status: Acute Base Code: M54.2 - CERVICALGIA Priority: Medium Comment: - Flexeril 10mg given. Likely 2/2 to muscle spasm. - No WBC elevation on CBC this AM (3) Ribs, multiple fractures Current Visit: Yes Status: Acute Qualifiers: Encounter type: initial encounter Fracture type: closed Laterality: left Qualified Code(s): S22.42XA - Multiple fractures of ribs, left side, initial encounter for closed fracture Base Code: S22.49XA - MULTIPLE FRACTURES OF RIBS, UNSP SIDE, INIT FOR CLOS FX Priority: High Comment: - Pain currently controlled with nerve block and ibuprofen/tylenol. - Spoke with radiologist this AM and he was concerned regarding small pneumothorax and rec rpt study in 3 hours. Pneumothorax has reduced from 4mm to 2mm and he stated just to monitor that it is resolving and not increasing in size. No need for chest tube at this time. - rpt for this AM pending. - Pt denies any SOB. - Rpt CXR in AM. (4) Hyponatremia Current Visit: Yes Status: Acute Base Code: E87.1 - HYPO-OSMOLALITY AND HYPONATREMIA Priority: High Comment: - Pt states that she saw her dentist and her BP was high. - Her dentist recommended that she cut salt out of her diet so she has only been using a salt substitute. She also states she drinks alot of free water throughout the day at home. - Continue free water restriction and counseled regarding salt intake to prevent hyponatremia in the future. - Na level 124 ->134 ->131 today. - No symptoms of confusion or AMS. (5) COPD (chronic obstructive pulmonary disease) Current Visit: Yes Status: Chronic Qualifiers: COPD type: unspecified COPD Qualified Code(s): J44.9 - Chronic obstructive pulmonary disease, unspecified Base Code: J44.9 - CHRONIC OBSTRUCTIVE PULMONARY DISEASE, UNSPECIFIED Priority : Medium Comment: - Resp on board. Inhalers as prescribed. (6) Diabetes mellitus Current Visit: Yes Status: Chronic Qualifiers: Diabetes mellitus type: type 2 Diabetes mellitus fci insulin use: without fci use Diabetes mellitus complication status: without complication Qualified Code(s): E11.9 - Type 2 diabetes mellitus without complications Base Code: E11.9 - TYPE 2 DIABETES MELLITUS WITHOUT COMPLICATIONS Priority: Low Comment: Continue metformin as prescribed. - Disposition Disposition: Likely home tomorrow if Pneumo continues to resolve, pain controlled, and Na+ back to normal range. Pt will need thyroid U/S and evaluation of adrenal gland outpt. Results - Labs Result Diagrams: 07/06/18 06:00 07/06/18 06:00 Labs Last 24 Hours: Laboratory Results - last 24 hr 07/06/18 07/06/18 06:00 06:00 WBC 9.1 RBC 4.18 Hgb 12.4 Hct 38.3 MCV 91.6 MCH 29.7 MCHC 32.4 RDW 13.3 Plt Count 343 MPV 9.7 Gran % 66.2 Lymphocytes % 24.1 Monocytes % 7.8 Eosinophils % 1.7 Basophils % 0.2 Sodium 131 L Potassium 4.4 Chloride 91 L Carbon Dioxide 25.0 Anion Gap 15.0 BUN 14 Creatinine 0.8 Estimated GFR > 60 Random Glucose 119 H Calcium 9.6 Total Bilirubin 0.30 AST 12 ALT 16 Alkaline Phosphatase 63 Total Protein 6.7 Albumin 4.3 Globulin 2.4 Albumin/Globulin Ratio 1.8 DVT/PE Assessment - Risk for VTE Risk for VTE: No Risk Level: Low Risk Assessment Date: 07/05/18 Risk Assessment Time: 12:16 VTE Orders Placed or Will Be Placed: Yes - Active Medicaitons Current Medications: Current Medications Acetaminophen (Tylenol 500mg Tab) 1,000 mg PO Q6HR [facility] Last Admin: 07/06/18 06:03 Dose: 1,000 mg Albuterol Sulfate () 2.5 mg INH RESP.Q4H PRN PRN Reason: DIFFICULTY IN BREATHING Albuterol/Ipratropium (Duoneb) 3 ml INH 0600,1130,1700,2030 [facility] Last Admin: 07/06/18 06:04 Dose: 3 ml Diphenhydramine HCl (Benadryl) 12.5 mg IVP Q4H PRN PRN Reason: GI UPSET Docusate Sodium (Colace) 200 mg PO DAILY [facility] Last Admin: 07/05/18 09:06 Dose: 200 mg Guaifenesin (Mucinex) 1,200 mg PO BID [facility] Last Admin: 07/05/18 21:17 Dose: 1,200 mg Hydralazine HCl (Apresoline) 15 mg IV Q2HR PRN PRN Reason: SBP > 179 or DBP > 99 Last Admin: 07/06/18 09:17 Dose: 15 mg Hydrochlorothiazide (Hctz 25mg) 25 mg PO DAILY [facility] Ibuprofen (Motrin 400mg) 800 mg PO Q8HR [facility] Last Admin: 07/06/18 06:04 Dose: 800 mg Lidocaine (Lidoderm) 1 each TOP 0800 [facility] Last Admin: 07/06/18 08:15 Dose: Not Given Lisinopril (Zestril) 40 mg PO DAILY [facility] Loratadine (Claritin) 10 mg PO DAILY [facility] Last Admin: 07/05/18 09:05 Dose: 10 mg Metformin HCl (Glucophage Ir) 500 mg PO BID [facility] Last Admin: 07/05/18 21:16 Dose: 500 mg Miscellaneous (Remove Patch) 1 each TD 2000 [facility] Last Admin: 07/05/18 21:20 Dose: 1 each Morphine Sulfate (Morphine Sulfate) 1 mg IVP Q4H PRN PRN Reason: PAIN - SEVERE (8-10) Last Admin: 07/05/18 11:19 Dose: 1 mg Non-Formulary Medication (Budesonide/Formoterol Fumarate [Symbicort 160-4.5 Mcg Inhaler]) 2 inh IH Q12H PIOTR Last Admin: 07/06/18 08:12 Dose: 2 inh Ondansetron HCl (Zofran) 4 mg IVP Q8H PRN PRN Reason: NAUSEA Last Admin: 07/06/18 09:12 Dose: 4 mg Pantoprazole Sodium (Protonix) 40 mg PO 0700,2200 [facility] Last Admin: 07/06/18 06:03 Dose: 40 mg Polyethylene Glycol (Miralax) 17 gm PO DAILY [facility] Last Admin: 07/05/18 18:22 Dose: Not Given Simvastatin (Zocor) 10 mg PO QHS [facility] Last Admin: 07/05/18 21:16 Dose: 10 mg AMI Plan - Labs Result Diagrams: 07/06/18 06:00 07/06/18 06:00
[2018-07-06] MEDS: GUAIFENESIN 1,200 MG TABLET PO SCH ×2 (11:42→21:14)
[2018-07-06] MEDS: DOCUSATE SODIUM 100 MG CAPSULE PO SCH (11:42)
[2018-07-06] MEDS: BIFIDOBACTERIUM INFANTIS 4 MG CAPSULE PO SCH (11:42)
[2018-07-06] MEDS: POLYETHYLENE GLY 17 GM PACKET PO SCH (11:42)
[2018-07-06] MEDS: LORATADINE 10 MG TABLET PO SCH (11:44)
[2018-07-06] MEDS: METFORMIN 500 MG TABLET PO SCH ×2 (12:14→21:14)
[2018-07-06] MEDS: TRAMADOL HCL 50 MG TABLET PO PRN (16:15)
[2018-07-06] MEDS: SIMVASTATIN 10MG TABLET PO SCH (21:14)
[2018-07-06] MEDS: REMOVE PATCH 1 EACH MISC TD SCH (21:14)
[2018-07-07] MEDS: ACETAMINOPHEN 500 MG TABLET PO SCH ×3 (00:29→13:12)
[2018-07-07] MEDS: PANTOPRAZOLE SODIUM 40 MG TABLET PO SCH (06:05)
[2018-07-07] MEDS: IPRATROPIUM/ALBUTEROL (0.5MG/3MG) NEB INH SCH ×2 (06:15→11:29)
[2018-07-07 06:24] LABS: BASO % 0.2 % (0-6); EOS % 2.3 % (0-6); GRAN % 62.5 % (47-80); HEMATOCRIT 38.3 % (35.0-47.0); HEMOGLOBIN 12.2 gm/dl (11.6-16.0); LYMPH % 26.4 % (16-45); MEAN CELL VOLUME 91.6 fl (81-97); MEAN CORPUSCULAR HEMOGLOBIN 29.2 pg (27-33); MEAN CORPUSCULAR HGB CONC 31.9 g/dl (32-36); MEAN PLATELET VOLUME 9.5 fl (7.4-10.4); MONO % 8.6 % (0-9); PLATELET COUNT 363 K/uL (130-400); RED BLOOD COUNT 4.18 M/uL (3.80-5.40); RED CELL DISTRIBUTION WIDTH 13.4 % (11.5-14.5); WHITE BLOOD COUNT W/O DIFF 8.3 K/uL (4.2-12.2)
[2018-07-07 06:34] LABS: ALB/GLOB RATIO 1.7 (1.1-1.8); ALBUMIN 4.3 g/dL (4.0-5.0); ALKALINE PHOSPHATASE 60 U/L (35-104); ALT/SGPT 15 U/L (<33); AST/SGOT 13 U/L (10.0-35.0); BLOOD UREA NITROGEN 12 mg/dL (8-23); CREATININE 0.6 mg/dL (0.5-0.9); EST GLOMERULAR FILTRATION RATE > 60 mL/min; GLUCOSE,RANDOM 112 mg/dL (74-109); TOTAL PROTEIN 6.8 g/dL (6.6-8.7)
[2018-07-07] MEDS: [UNRECOGNIZED DRUG - OTHER] IH SCH (08:02)
[2018-07-07] MEDS: FORMOTEROL FUMARATE IH SCH (08:02)
[2018-07-07] MEDS: BUDESONIDE IH SCH (08:02)
[2018-07-07] MEDS: LIDOCAINE 5% PATCH TOP SCH (08:20)
[2018-07-07] MEDS: TRAMADOL HCL 50 MG TABLET PO PRN ×2 (08:20→13:11)
[2018-07-07] MEDS: HYDROCHLOROTHIAZIDE 25 MG TABLET PO SCH ×2 (08:29→10:23)
[2018-07-07] MEDS: LISINOPRIL 20 MG TABLET PO SCH ×2 (08:29→10:24)
[2018-07-07] MEDS: GUAIFENESIN 1,200 MG TABLET PO SCH (10:22)
[2018-07-07] MEDS: BIFIDOBACTERIUM INFANTIS 4 MG CAPSULE PO SCH (10:22)
[2018-07-07] MEDS: LORATADINE 10 MG TABLET PO SCH (10:22)
[2018-07-07] MEDS: DOCUSATE SODIUM 100 MG CAPSULE PO SCH (10:22)
[2018-07-07] MEDS: METFORMIN 500 MG TABLET PO SCH (10:23)
[2018-07-07] MEDS: POLYETHYLENE GLY 17 GM PACKET PO SCH (10:24)
[2018-07-07] MEDS: ONDANSETRON HCL IV 4 MG/2 ML VIAL IVP PRN (11:15)
--- NOTE | 2018-07-07 11:36 | Discharge Summary ---
Providers Discharge Summary Date: 07/07/18 Date of admission: 07/04/18 13:57 Expected Date of Discharge: 07/07/18 Attending physician: LEX MORA Primary care physician: CONY GO D.O. Consults: Consult Orders 07/04/18 15:46 Consult NOW Consulting Provider: [facility] [employer] Physician Instructions: rib fxs6,7,8 poss 4,5 Reason For Exam: nerve block for rib fxs Physical Exam - Vital Signs Vital Signs: Vital Signs - Last 24 Hrs Temp Pulse Pulse Resp BP Pulse Ox 07/07/18 09:37 98.4 F 96 H 18 159/64 94 L 07/07/18 09:00 80 18 07/07/18 08:02 89 6 L 94 L 07/07/18 06:16 84 16 95 07/07/18 06:00 97.7 F 80 18 149/68 94 L 07/06/18 23:57 97.9 F 83 18 125/68 95 07/06/18 22:10 81 16 95 07/06/18 20:04 85 16 94 L 07/06/18 20:00 97.9 F 85 20 133/68 94 L 07/06/18 19:55 82 16 07/06/18 18:00 98.2 F 98 H 16 156/61 95 07/06/18 17:02 91 H 16 98 07/06/18 14:00 98.1 F 94 H 16 162/73 93 L 07/06/18 11:55 99 H 16 166/67 07/06/18 11:35 106 H 16 96 - General General Appearance: Alert, Oriented x3, Cooperative, No acute distress Limitations: Physical limitation (2/2 to pain in ribs when shifting positions) - Head Head exam: Normal inspection - Eye Eye exam: Normal appearance, EOMI Pupils: Normal accommodation - ENT ENT exam: Normal exam, Normal external ear exam Ear exam: Normal external inspection Nasal Exam: Normal inspection. negative: Discharge Mouth exam: Normal external inspection Teeth exam: Normal inspection - Respiratory Respiratory exam: Normal lung sounds bilaterally, Chest wall tenderness (left side with palpation along the ribs). negative: Accessory muscle use, Decreased breath sounds, Rales, Respiratory distress, Rhonchi, Stridor, Wheezes - Cardiovascular Cardiovascular Exam: Regular rate, Normal rhythm, Normal heart sounds - GI/Abdominal GI/Abdominal exam: Soft, Hypoactive bowel sounds. negative: Tenderness - Rectal Rectal exam: Deferred - exam: Deferred - Extremities Extremities exam: Normal inspection, Full ROM - Back Back exam: Reports: Normal inspection, Full ROM. Denies: Muscle spasm, Tenderness - Neurological Neurological exam: Alert, Oriented X3 - Psychiatric Psychiatric exam: Normal affect, Normal mood - Skin Skin exam: Dry, Intact, Normal color, Warm Hospitalization - Hospitalization Admission Diagnosis: fxs ribs 4-8, hyponatremia - Problem List/Discharge Diagnosis (1) HTN, goal below 150/90 Current Visit: Yes Status: Chronic Base Code: I10 - ESSENTIAL (PRIMARY) HYPERTENSION Comment: - Significantly elevated pressures x 1 day. Could be due to acute and frequent NSAID use. - D/C'd NSAID use and elevated pressures seen but definately not as high. Pt states that her BP was elevated prior to admission at her dentist appointment as well. - Increased daily lisinopril from 20mg ->40mg - Increased daily HCTZ from 12.5 -> 25mg (2) Neck pain Current Visit: Yes Status: Acute Base Code: M54.2 - CERVICALGIA Comment: Resolved (3) Ribs, multiple fractures Current Visit: Yes Status: Acute Discharge Diagnosis: Encounter type: initial encounter Fracture type: closed Laterality: left Qualified Code(s): S22.42XA - Multiple fractures of ribs, left side, initial encounter for closed fracture Base Code: S22.49XA - MULTIPLE FRACTURES OF RIBS, UNSP SIDE, INIT FOR CLOS FX Comment: - Pain currently controlled with nerve block and tylenol and tramadol. - Rpt XR shows resolution of tiny pneumothorax. (4) Hyponatremia Current Visit: Yes Status: Acute Base Code: E87.1 - HYPO-OSMOLALITY AND HYPONATREMIA Comment: - Pt states that she saw her dentist and her BP was high. - Her dentist recommended that she cut salt out of her diet so she has only been using a salt substitute. She also states she drinks alot of free water throughout the day at home. - Continue free water restriction and counseled regarding salt intake to prevent hyponatremia in the future. - Na level 124 ->134 ->131- 129 today. - No symptoms of confusion or AMS. - F/u with primary and rpt labs. (5) COPD (chronic obstructive pulmonary disease) Current Visit: Yes Status: Chronic Discharge Diagnosis: COPD type: unspecified COPD Qualified Code(s): J44.9 - Chronic obstructive pulmonary disease, unspecified Base Code: J44.9 - CHRONIC OBSTRUCTIVE PULMONARY DISEASE, UNSPECIFIED Comment : - Resp on board. Inhalers as prescribed. (6) Diabetes mellitus Current Visit: Yes Status: Chronic Discharge Diagnosis: Diabetes mellitus type: type 2 Diabetes mellitus detention insulin use: without detention use Diabetes mellitus complication status: without complication Qualified Code(s): E11.9 - Type 2 diabetes mellitus without complications Base Code: E11.9 - TYPE 2 DIABETES MELLITUS WITHOUT COMPLICATIONS Comment: Continue metformin as prescribed. - Disposition Home today. Pt will need thyroid U/S and evaluation of adrenal gland outpt. - Hospitalization Course Hospital Course: PMH: HTN, HLD, DMII, Asthma, COPD Pt admitted on 07/04 after fall in the bathtub. Pt was noted to have ribs 4-8 on left side with fx that were non-displaced. She was also noted to have possible tiny pneumothorax of 4mm which resolved spontaneously. Resolution was confirmed with serial XR's during stay and CT scan prior to D/C. For pain control the pt could not tolerate any IV narcotics and used nerve block, tylenol, and ibuprofen. Her blood pressures gino significantly > 180/100 after 1.5 days of 800mg ibuprofen scheduled use. Ibuprofen was d/c'd but pt did state that prior to admission her BP was running in the 170's. Her lisinopril and HCTZ was increased to 40mg and 25mg respectively. Pt was on fluid restriction for her hyponatremia and went from 124 on admission to 134 and back down to 129. Pt was asymptomatic. It is possible that she is chronically hyponatremic without symptoms. Recent increase in lisinopril also likely will cause issues with hyponatremia. Counseled pt to continue fluid restriction upon D/C and to f/u with PCP in 2 days for hospital follow up as scheduled. D/C'd on tramadol and tylenol for pain control. Pt was found to have incidental finding of thyroid nodules and nodule on adrenal gland that will need follow up and further imaging outpt. Procedures: Imaging and X-Rays 07/04/18 09:44 CHEST W CONTRAST [CT] Stat 07/05/18 06:00 CHEST 2 VIEWS [RAD] Routine 07/05/18 09:00 CHEST 3 VIEWS [RAD] Stat 07/06/18 07:00 CHEST 3 VIEWS [RAD] Stat 07/06/18 08:01 CHEST 1 VIEW [RAD] Stat 07/07/18 09:23 CHEST 3 VIEWS [RAD] Stat 07/07/18 10:16 CHEST WO CONTRAST [CT] Stat Abnormal Labs: Abnormal Lab Results 07/04/18 07/04/18 07/04/18 Range/Units 09:49 09:49 10:55 MCHC (32-36) g/dl Lymphocytes 13.0 L (16-45) % Sodium 125 L 124 L (136-145) mmol/L Chloride 84 L (98-107) mmol/L Carbon Dioxide 21.0 L (22-29) mmol/L Anion Gap 20.0 H (7-16) Random Glucose 160 H (74-109) mg/dL Total Protein (6.6-8.7) g/dL Albumin/Globulin Ratio 1.9 H (1.1-1.8) Urine Glucose (UA) (NEGATIVE) 07/04/18 07/05/18 07/06/18 Range/Units 11:45 06:02 06:00 MCHC (32-36) g/dl Lymphocytes (16-45) % Sodium 134 L 131 L (136-145) mmol/L Chloride 94 L 91 L (98-107) mmol/L Carbon Dioxide (22-29) mmol/L Anion Gap (7-16) Random Glucose 121 H 119 H (74-109) mg/dL Total Protein 6.4 L (6.6-8.7) g/dL Albumin/Globulin Ratio 2.0 H (1.1-1.8) Urine Glucose (UA) 100 mg/dl H (NEGATIVE) 07/07/18 07/07/18 Range/Units 05:45 05:45 MCHC 31.9 L (32-36) g/dl Lymphocytes (16-45) % Sodium 129 L (136-145) mmol/L Chloride 87 L (98-107) mmol/L Carbon Dioxide (22-29) mmol/L Anion Gap 17.0 H (7-16) Random Glucose 112 H (74-109) mg/dL Total Protein (6.6-8.7) g/dL Albumin/Globulin Ratio (1.1-1.8) Urine Glucose (UA) (NEGATIVE) Condition at Discharge: (1) Good VTE Discharge VTE Reason For No Overlap Therapy: Not Indicated Discharge Medications - Discharge Medications Prescriptions: Tramadol HCl [Ultram] 50 mg PO Q4H PRN #30 tablet PRN Reason: Pain - Mod To Severe (5-10) Home Medications: Ambulatory Orders Albuterol Sulfate [Ventolin Hfa] 1 puff INH QID PRN 07/25/15 [Last Taken ] Loratadine [Claritin] 10 mg PO DAILY 07/25/15 [Last Taken 07/04/18] Omeprazole [Prilosec] 20 mg PO BID 07/25/15 [Last Taken 07/04/18] Cyclobenzaprine HCl 10 mg PO DAILY PRN tab 10/30/16 [Last Taken 08/12/17] Pravastatin Sodium 20 mg PO QHS #90 10/30/16 [Last Taken 07/04/18] Ipratropium/Albuterol [Duoneb] 1 neb INH QID 07/01/17 [Last Taken 07/04/18] Guaifenesin [Mucinex] 600 mg PO Q12HR 07/27/17 [Last Taken 07/04/18] L.acidoph,Paracasei, B.lactis [Probiotic] 1 each PO DAILY 07/27/17 [Last Taken 07/04/18] Budesonide/Formoterol Fumarate [Symbicort 160-4.5 Mcg Inhaler] 2 inh IH BID [Last Taken 07/04/18] Metformin HCl [Glucophage] 500 mg PO BID 02/17/18 [Last Taken 07/04/18] Docusate Sodium [Stool Softener] 200 mg PO DAILY cap 06/12/18 [Last Taken 07/04] Acetaminophen [Tylenol 500Mg Tab] 1,000 mg PO Q6HR tablet 07/07/18 [Last Taken Unknown] Lisinopril/Hydrochlorothiazide [Lisinopril-Hctz 20-12.5 mg Tab] 2 each PO DAILY #30 07/07/18 [Last Taken 07/04/18] Tramadol HCl [Ultram] 50 mg PO Q4H PRN #30 tablet 07/07/18 [Last Taken Unknown] Discharge Plan - Discharge Instructions Activity at Discharge: Increase Activity as Tolerated Diet at Discharge: Regular Diet Additional Instructions: Follow up with PCP as scheduled in 2 days. Tell your doctor about nodules found on the thyroid and adrenal gland that need further imaging and evaluation. Increase your BP medication to 2 pills daily. (lisinopril-HCTZ 20-12.5) application support administrator tramadol from your pharmacy. Quality Measures - Quality Measures Quality Measures: Advance Directives, Documentation of Current Medications in Medical Record, Elder Maltreatment Screen and Follow-Up Plan, Screening for High Blood Pressure and F/U Documented - Current Medications Quality Measure: Measure #130: Documentation of Current Medications Documentation of Current Medications: <Current Medications Documented/Reviewed> [X2971] - Blood Pressure Screening Quality Measure: Screening for High Blood Pressure and Follow-Up Documented Does Patient Have Any of the Following: Active Dx of HTN Blood Pressure Classification: Hypertensive Reading Systolic Measurement: 153 Diastolic Measurement: 75 Screening for High Blood Pressure: Patient Exclusion, Hx of HTN [G9744] - Advance Directives Quality Measure: Measure #47: Care Plan Advance Directives Established: No Advance Directives Information Provided To Patient: Already Provided Advance Directives on File: No Living Will: No Power of Revolving Field Assembler: No Advance Care Planning: <Care Plan/Decision Maker Documented; Discussed & Documented> [0006L] - Elder Abuse Suspicion Index Screening: Elder Abuse Suspicion Index Screening Rely on people for bathing, dressing, shopping, banking, etc: No Prevented from getting food, clothes, medication, etc: No Made to feel shamed or threatened by someone: No Forced to sign papers or use money against will: No Feel afraid, touched in ways not wanted or hurt physically: No Poor eye contact, withdrawn, malnourished, cuts or bruises: No Screening Result: Negative result EASI Reference Information: Marilynn HOOVER, Ondina C, Asa D, Meliton Stewart.Development and validation of a tool to assist physicians identification of elder abuse: The Elder Abuse Suspicion Index (EASI ). Journal of Elder Abuse and Neglect, 2008; 20 (3): 276-300. - Elder Maltreatment Screen Quality Measures: Elder Maltreatment Screen and Follow-Up Plan Elder Maltreatment Screen: <Negative, No Follow-Up Plan Required> [G8734]
--- NOTE | 2018-07-09 07:36 | RADIOLOGY REPORT ---
EXAM: CHEST HISTORY: RECENT RIB FRACTURES. TECHNIQUE: Three views of the chest were obtained. Comparison: 07/05/18. FINDINGS: The heart is not enlarged. No mediastinal mass. No acute infiltrate or vascular congestion identified. There may be a tiny left apical pneumothorax on the expiratory view. There is mild blunting of the left costophrenic angle suggesting a small left pleural effusion. The lungs remain hyperinflated. IMPRESSION: 1. POSSIBLE TINY LEFT APICAL PNEUMOTHORAX. THIS IS SOMEWHAT EQUIVOCAL. 2. SMALL LEFT PLEURAL EFFUSION. 3. THE LUNGS ARE HYPERINFLATED. JOB NUMBER: [id number] MTDD
--- NOTE | 2018-07-09 07:40 | RADIOLOGY REPORT ---
EXAM: RIGHT LATERAL DECUBITUS VIEW OF THE THORAX HISTORY: RECENT RIB FRACTURES, LEFT PNEUMOTHORAX. TECHNIQUE: A single right lateral decubitus view of the thorax was performed. Comparison: Prior exam 07/05/18 and more recent chest x-ray 07/06/18. FINDINGS: The probable tiny left apical pneumothorax seen on the recent previous chest x-ray performed the same day is not seen with certainty on this decubitus study. Exam otherwise unremarkable. IMPRESSION: FINDINGS ABOVE. JOB NUMBER: [id number] MTDD
--- NOTE | 2018-07-09 07:43 | RADIOLOGY REPORT ---
EXAM: CHEST HISTORY: FOLLOW-UP PNEUMOTHORAX AND RIB FRACTURES. TECHNIQUE: Three views of the chest were obtained. Comparison: 07/06/18. FINDINGS: The heart is not enlarged and there is no mediastinal mass. There is no infiltrate or vascular congestion. No pneumothorax identified. Mild blunting of the left costophrenic angle similar to the previous study. IMPRESSION: 1. NO PNEUMOTHORAX SEEN ON TODAY'S EXAM. 2. MINOR BLUNTING OF THE LEFT COSTOPHRENIC ANGLE SIMILAR TO THE PREVIOUS STUDY POSSIBLY DUE TO A SMALL LEFT EFFUSION. JOB NUMBER: [id number] MTDD
--- NOTE | 2018-07-09 07:48 | CT SCAN REPORT ---
EXAM: CT OF THE THORAX HISTORY: RECENT FALL, PNEUMOTHORAX. TECHNIQUE: CT of the thorax was performed without intravenous contrast. Comparison: Prior CT of the thorax 07/04/18 and prior chest x-ray 07/07/18. FINDINGS: No pneumothorax identified. There is a small left pleural effusion, new since the previous study. Linear areas of plate like atelectasis are present in the lower lungs. No area of lung consolidation. There is no right pleural effusion. There are no enlarged mediastinal or hilar lymph nodes. no aortic aneurysm. The heart is not enlarged. There is no pericardial effusion. Limited upper abdominal images are unremarkable. There is a minimally displaced fracture of the left lateral seventh rib. There are probably nondisplaced fractures of the lateral left fifth and sixth ribs. There may be a nondisplaced fracture of the lateral left eighth rib. IMPRESSION: 1. NO PNEUMOTHORAX IDENTIFIED. 2. SMALL LEFT PLEURAL EFFUSION WHICH IS NEW SINCE THE PREVIOUS STUDY. 3. FRACTURE OF THE LATERAL LEFT SEVENTH RIB WITH POSSIBLE NONDISPLACED FRACTURES OF THE LATERAL LEFT FIFTH, SIXTH AND EIGHTH RIBS. JOB NUMBER: [id number] [facility]
== END 2018-07-07 12:15 | disposition home or self-care (01) ==
LOC: ER 08:51 → INTOOBSV 13:57 → MEDSURG 13:57
PROVIDERS: ADMIT Internal Medicine; ATTEND Internal Medicine
DX: S22.42XA Multiple fractures of ribs, left side, initial encounter for closed fracture (principal); S27.321A Contusion of lung, unilateral, initial encounter; E87.1 Hypo-osmolality and hyponatremia; W18.2XXA Fall in (into) shower or empty bathtub, initial encounter; Y93.E1 Activity, personal bathing and showering; E27.9 Disorder of adrenal gland, unspecified; J44.9 Chronic obstructive pulmonary disease, unspecified; I10 Essential (primary) hypertension; E11.9 Type 2 diabetes mellitus without complications; E03.9 Hypothyroidism, unspecified; J45.909 Unspecified asthma, uncomplicated; M19.90 Unspecified osteoarthritis, unspecified site; Z95.811 Presence of heart assist device; Z86.73 Personal history of transient ischemic attack (TIA), and cerebral infarction without residual deficits; Z87.891 Personal history of nicotine dependence
CPT/HCPCS: 36416; 71045; 71046; 71047; 71250; 71260; 76942; 80053; 81001; 82948; 84295; 85025; 85027; 94010; 94640; 96365; 96374; 96375; 99217; 99220; 99226; 99285; J2270; J2405; J2550